=== PATIENT | male | born 2000 | race Caucasian/White ===

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

== ENCOUNTER 2019-01-15 00:44 | Observation (INO) | payer MEDICAID, OTHER ==
[~2019-01-15] VITALS: Ht 162.6 cm; Wt 64.8 kg
[2019-01-15] VITALS (12 sets, daily range): BP systolic 90–127; BP diastolic 46–85
[~2019-01-15 00:44] MED LIST changes: +BUPR300T34; +CIPRODEX AD; +DEBR6.5S4 AD; +LAMO25TA4
[2019-01-15] MEDS ORDERED: HALOPERIDOL 5 MG/ML VIAL (J1630) As Ordered ONE (00:55)
[2019-01-15] MEDS ORDERED: diphenhydrAMINE INJ 50MG/ML VIAL (J1200) As Ordered ONE (00:55)
[2019-01-15] MEDS ORDERED: LORazepam 2 MG/ML VIAL (J2060) As Ordered ONE (00:56)
[2019-01-15] MEDS ORDERED: NS 1,000 ML IV ONE (01:00)
[2019-01-15] MEDS ORDERED: HALOPERIDOL 5 MG/ML VIAL (J1630) IM ONE (01:00)
[2019-01-15] MEDS ORDERED: LORazepam 2 MG/ML VIAL (J2060) IM ONE (01:00)
[2019-01-15] MEDS ORDERED: diphenhydrAMINE INJ 50MG/ML VIAL (J1200) IM ONE (01:00)
[2019-01-15] MEDS ORDERED: diphenhydrAMINE INJ 50MG/ML VIAL (J1200) IM STA (01:11)
[2019-01-15] MEDS ORDERED: HALOPERIDOL 5 MG/ML VIAL (J1630) IM STA (01:11)
[2019-01-15] MEDS ORDERED: LORazepam 2 MG/ML VIAL (J2060) IM STA (01:12)
[2019-01-15 01:57] LABS: BASO % 0.4 % (0.0-1.0); EOS # 0.1 10^3/uL (0.0-0.50); EOS % 0.7 % (0.0-3.0); HEMOGLOBIN 14.5 g/dl (13.5-17.5); LYMPH # 2.3 10^3/uL (1.5-6.5); MEAN CORPUSCULAR HEMOGLOBIN 31.9 pg (27.0-33.0); MEAN CORPUSCULAR HGB CONC 34.5 g/dl (32.0-36.5); MEAN CORPUSCULAR VOLUME 92.3 fl (80.0-96.0); MONO # 0.4 10^3/uL (0.0-0.8); MONO % 5.5 % (0.0-5.0); NEUTROPHILS # 5.1 10^3/uL (1.8-7.7); NEUTROPHILS % 64.2 % (36.0-66.0); PLATELET COUNT, AUTOMATED 194 10^3/uL (150-450); RED BLOOD COUNT 4.55 10^6/uL (4.30-6.10)
[2019-01-15 02:29] LABS: AMPHETAMINES LEVEL URINE NEGATIVE (NEGATIVE); BARBITURATES URINE NEGATIVE (NEGATIVE); BENZODIAZEPINES URINE NEGATIVE (NEGATIVE); CANNABINOIDS URINE POSITIVE (NEGATIVE); COCAINE METABOLITE URINE NEGATIVE (NEGATIVE); METHADONE URINE NEGATIVE (NEGATIVE); OPIATES URINE NEGATIVE (NEGATIVE); PHENCYCLIDINE URINE NEGATIVE (NEGATIVE)
[2019-01-15 02:38] LABS: ACETAMINOPHEN LEVEL < 2.0 UG/ML (10.0-30.0); ALBUMIN 3.8 GM/DL (3.2-5.2); ALT/SGPT 22 U/L (12-78); BILIRUBIN,DIRECT 0.3 MG/DL (0.0-0.2); BILIRUBIN,TOTAL 1.2 MG/DL (0.2-1.0); BLOOD UREA NITROGEN 14 MG/DL (7-18); CALCIUM LEVEL 7.7 MG/DL (8.5-10.1); CARBON DIOXIDE LEVEL 27 MEQ/L (21-32); CHLORIDE LEVEL 110 MEQ/L (98-107); CK-MB VALUE MASS 5.1 NG/ML (<3.6); CPK CREATINE PHOSPHOKINASE 316 U/L (39-308); CREATININE FOR GFR 1.04 MG/DL (0.70-1.30); ETHYL ALCOHOL (ETHANOL) 0.396 % (0.000-0.010); GLUCOSE, FASTING 98 MG/DL (70-100); MB/CK RELATIVE INDEX 1.61 (< OR =4); POTASSIUM SERUM 3.3 MEQ/L (3.5-5.1); SALICYLATE LEVEL < 1.7 MG/DL (5.0-30.0); SODIUM LEVEL 147 MEQ/L (136-145); TOTAL PROTEIN 6.6 GM/DL (6.4-8.2); TROPONIN I 0.02 NG/ML (< 0.10)
--- NOTE | 2019-01-15 03:12 | REPVR ---
EXAM: CT Head Without Contrast EXAM DATE/TIME: 01/15/2019 2:21 AM CLINICAL HISTORY: 18 years old, male; Altered mental status/memory loss TECHNIQUE: Imaging protocol: Computed tomography images of the head without contrast. Radiation optimization: All CT scans at this facility use at least one of these dose optimization techniques: automated exposure control; mA and/or kV adjustment per patient size (includes targeted exams where dose is matched to clinical indication); or iterative reconstruction. COMPARISON: No relevant prior studies available. FINDINGS: Brain: Normal. No hemorrhage. Unremarkable white matter. No mass effect. Ventricles: Normal. No ventriculomegaly. Bones/joints: Unremarkable. No acute fracture. Sinuses: Visualized sinuses are unremarkable. No fluid levels. Mastoid air cells: Visualized mastoid air cells are well aerated. No mastoid effusion. Soft tissues: Unremarkable. IMPRESSION: Negative noncontrast head CT. Electronically signed by: Cordell Hernandez On 01/15/2019 03:12:30 AM
[2019-01-15] MEDS ORDERED: SUCCINYLCHOLINE INJ 200 MG/10 ML VIAL (J0330) IV ONE (03:15)
[2019-01-15] MEDS ORDERED: PROPOFOL 1,000 MG in APPROPRIATE DILUENT 1 EA IV SCH (03:15)
[2019-01-15] MEDS ORDERED: ETOMIDATE INJ 20MG/10ML VIAL IV ONE (03:15)
--- NOTE | 2019-01-15 04:19 | ECGEPIP ---
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
[2019-01-15] MEDS: PROPOFOL 1,000 MG in APPROPRIATE DILUENT 1 EA IV SCH ×3 (07:18→16:59)
[2019-01-15] MEDS ORDERED: NS 1,000 ML IV SCH (07:18)
[2019-01-15] MEDS ORDERED: MORPHINE 4 MG/ML 1ML VIAL/SYRINGE (J2270) IV PRN (07:30)
--- NOTE | 2019-01-15 07:42 | REP ---
Clinical: Altered mental status . Comparison: 07/18/2016 . Findings: The mediastinum and cardiac silhouette are stable and within normal limits for portable technique. The lung roe are clear without acute consolidation, effusion, or pneumothorax. Skeletal structures are intact. Impression: No acute cardiopulmonary process appreciated. Electronically Signed by Erlin Bassett MD 01/15/2019 07:34 A
--- NOTE | 2019-01-15 07:43 | REP ---
Clinical: Status post intubation . Comparison: 07/18/2016 . Findings: Endotracheal tube approximately 4.5 cm above the ankita on final image. The mediastinum and cardiac silhouette are stable and within normal limits for portable technique. The lung roe are clear without acute consolidation, effusion, or pneumothorax. Skeletal structures are intact. Impression: No acute cardiopulmonary process appreciated. Electronically Signed by Erlin Bassett MD 01/15/2019 07:35 A
[2019-01-15] MEDS ORDERED: CHLORHEXIDINE GLUCONATE 0.12 % 15ML UDC (PERIDEX ORAL RINSE) MT SCH (09:00)
[2019-01-15] MEDS ORDERED: PANTOPRAZOLE 40MG INJ (PROTONIX) (C9113) IV SCH (09:00)
[2019-01-15] MEDS ORDERED: ENOXAPARIN 40 MG/0.4 ML SYRINGE (J1650) SC SCH (09:00)
[2019-01-15] MEDS ORDERED: MULTIVITAMIN -ADULT INJECTION 10 ML, THIAMINE INJection 100 MG, FOLIC ACID 1 MG in NS 1... IV ONE (09:00)
[2019-01-15] MEDS ORDERED: PROPOFOL 1,000 MG/100 ML VIAL As Ordered ONE (09:10)
[2019-01-15] MEDS: IPRATROPIUM 0.5MG/ALBUTEROL 2.5MG INH SOL UD 3ML (DUONEB)(J7620) NEB SCH ×3 (09:15→16:03)
[2019-01-15 09:22] LABS: ABG BASE EXCESS -1.9 (-2.0-2.0); ABG HCO3 22.8 MEQ/L (22.0-26.0); ABG O2 SATURATION 96.9 % (95.0-99.0); ABG PARTIAL PRESSURE CO2 38.9 mmHg (35.0-45.0); ABG STANDARD HCO3 22.9 MEQ/L (22.0-26.0); ABG pH (ARTERIAL) 7.386 UNITS (7.350-7.450)
--- NOTE | 2019-01-15 09:36 | HPE ---
DATE OF ADMISSION: 01/15/2019 CHIEF COMPLAINT: Asked by Dr. Magaña to evaluate and manage care for Mr. Terrell Álvarez secondary to requirement of intubation and mechanical ventilation secondary to alcohol intoxication. HISTORY OF PRESENT ILLNESS: Mr. Álvarez is a 18-year-old male who was found down on the sidewalk and brought to the emergency department. In the emergency department, he was found have an alcohol level of 0.4. In reading the emergency department intake, he had stated "I can become violent if pushed". He was very agitated kicking and trying to bite people. He had to be given Benadryl, Haldol and Ativan; two doses of each. He was still agitated and had to be placed in four point restraints. His level of consciousness decreased. He had no gag and it was fell necessary to intubate and protect his airway. The intubation was reported as easy with no concerns regarding aspiration. When I see him now he is intubated and sedated. The only history I could obtain from the nurses is that he had alcohol this evening including daiquiris as well as ate pizza. I was also told that he had been in rehab at least one time before starting at age 13. No relatives have come forward at this point. PAST MEDICAL HISTORY: 1. History of rehabilitation stay at least once starting at age 13. MEDICATIONS: No known medications. ALLERGIES: No known drug allergies. Social history, family history, and review of systems unattainable secondary to intubation. PHYSICAL EXAMINATION: General: Mr. Álvarez is intubated and synchronous with the ventilator. He did start coughing after examination and required some additional sedation. Vital signs: Temperature 97.8, pulse 77, blood pressure 101/55 with a MAP of 70, SpO2 99% on FiO2 of 0.4, respiratory rate 16 (set rate). HEENT: Mildly injected sclerae, pupils 2-3 mm and sluggish. Nares: Patent bilaterally. Moist mucosa. Oropharynx: ET tube and OG tube in place. Neck: Supple, without JVD, thyromegaly or masses, trachea is midline. Lymph: No cervical or supraclavicular lymphadenopathy. Chest: Normal shape. Lungs: Symmetric excursion, good air entry, no wheeze, rhonchi or crackle on tidal excursion. Normal I:E. No accessory muscle usage or retractions. Cardiovascular: Regular rate and rhythm with normal S1, S2, no murmur, rub or gallop appreciated. Abdomen: Diminished but present bowel sounds, soft, nondistended, no hepatosplenomegaly or masses appreciated. Extremities: Warm and well-perfused, normal capillary refill. Palpable pedal pulses bilaterally, no clubbing, cyanosis or edema. Skin: No tattoos. No obvious track macias including between the fingers and toes. LABORATORY DATA: CBC showed a hemoglobin of 14.5, hematocrit 42, platelet count 194,000, white blood cell count 8000 with a differential 64% neutrophils, 29% lymphocytes, 6% monocytes. His absolute eosinophilia is 100. Chemistries: Sodium 144, potassium 3.3, chloride 110, bicarbonate 27, anion gap 10, BUN 14, creatinine 1, glucose 98, calcium 7.7, total bilirubin 1.2, direct bilirubin 0.3, AST 21, ALT 22, alkaline phosphatase 58, CK 316, CK-MB 5.1, troponin-I 0.02, total protein 6.6, albumin 3.8, TSH 1.68. Urinalysis was clear with a pH of 6, specific gravity 1.01. Was otherwise negative. Toxicology shows salicylate level less of 1.7, acetaminophen less than 2, alcohol level 0.4, was positive cannabis but otherwise negative. I reviewed his chest x-rays as well as report. The first chest x-ray done post intubation showed the endotracheal tube to be very high but otherwise was unremarkable. His followup chest x-ray showed normal appearing cardiac silhouette and pulmonary vascular shadows. Normal appearing mediastinal region. No acute infiltrates. Normal inflation. Endotracheal tube was now about 6 cm above the ankita. Initial arterial blood gas was obtained, I believe prior to intubation, or at the time of intubation, was 7.29/106/48 with a measured saturation of 97% and a base excess -3. A repeat after being on the ventilator was 7.28/269/53 with a measured saturation of 100%. I do not know settings at that time, but they were adjusted to the current settings which are a rate of 16, tidal volume of 450, PEEP of 6 and FiO2 0.3. IMPRESSION: 1. Acute respiratory failure secondary to decreased mental status secondary to EtOH intoxication. 2. EtOH intoxication. The level of which he was able to tolerate suggests that this is a chronic problem for him. He also, by verbal report, has had at least one admission for rehabilitation starting at age 13. RECOMMENDATIONS: 1. Will continue with mechanical ventilation for the immediate future. 2. Unfortunately the anticipated time for which his alcohol level will actually reach even the legal driving limit of 0.08 would be in about 16 hours which would be around 6 p.m. 3. We will assess him for extubation around that time. 4. No relatives have been contacted. He is of legal age and while his mother is listed on the intake form as the next of kin, I do not know anything about their relationship and would prefer to wait until he is extubated to receive permission to speak with her. 5. We will give thiamine, multivitamin and folate. 6. We will repeat an arterial blood gas at this time and make adjustments as necessary. CRITICAL CARE TIME: 35 minutes not including procedure time. KELSIED
[2019-01-15] MEDS: MIDAZOLAM INJ 2 MG/2 ML VIAL (J2250) IV PRN ×7 (10:25→16:16)
--- NOTE | 2019-01-16 09:29 | CCN ---
DATE: 01/15/2019 NOTE: Throughout the day several attempts were made to lighten Mr. Álvarez sedation. He became very agitated, actually swung at staff and gave us the middle finger. He was therefore kept sedated. Anticipating his alcohol level would be around 0.08 around 6:00 p.m. a repeat level was drawn which was 0.084. We did a short weaning trial while his propofol wore off. On a weaning trial of pressure support of 5 and PEEP of 5, his rapid shallow breathing index was in the teens. He was taking an tidal volumes greater than 1300. He was following commands, it was felt safe to extubate him and he was successfully extubated. We asked him whether or not he wanted us to contact his family and he stated he did not want us to call his parents. We asked him if he wanted to call a sibling or friend and he said no. Plan is to observe him overnight as he is status post extubation; however, I would not be surprised if he went AMA. If he does, he needs a friend or family to give him a ride or he needs to be sent home by cab. Additional critical care time 15 minutes not including procedure time. CRISELDA
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
== END 2019-01-15 19:51 | disposition left against medical advice (07) ==
LOC: M ED 00:44 → M ED INP 00:45 → M ICU 08:24
PROVIDERS: ADMIT Internal Medicine Pulmonary Disease; ATTEND Internal Medicine Pulmonary Disease
DX: J96.00 Acute respiratory failure, unspecified whether with hypoxia or hypercapnia (principal); F10.120 Alcohol abuse with intoxication, uncomplicated; R41.82 Altered mental status, unspecified; F41.9 Anxiety disorder, unspecified; F32.9 Major depressive disorder, single episode, unspecified; M79.9 Soft tissue disorder, unspecified; Z78.1 Physical restraint status
CPT/HCPCS: 31500; 36415; 36600; 70450; 71045; 80048; 80076; 80307; 81001; 82550; 82553; 82803; 84443; 85025; 93005; 93041; 94002; 94640; 96372; 96374; 99291; C9113; G0480; J0330; J1200; J1650; J2250; J3411

== ENCOUNTER 2019-04-10 14:57 | Inpatient (IN) | payer MEDICAID, OTHER ==
[~2019-04-10] VITALS: Ht 180.3 cm; Wt 69.9 kg
[2019-04-10 15:36] LABS: HEMATOCRIT 43.3 % (42.0-52.0); HEMOGLOBIN 15.5 g/dl (13.5-17.5); MEAN CORPUSCULAR HEMOGLOBIN 33.9 pg (27.0-33.0); MEAN CORPUSCULAR HGB CONC 35.8 g/dl (32.0-36.5); MEAN CORPUSCULAR VOLUME 94.7 fl (80.0-96.0); PLATELET COUNT, AUTOMATED 182 10^3/uL (150-450); RED BLOOD COUNT 4.57 10^6/uL (4.30-6.10); WHITE BLOOD COUNT 5.8 10^3/uL (4.0-10.0)
[2019-04-10 16:10] LABS: ALBUMIN 4.1 GM/DL (3.2-5.2); ALT/SGPT 42 U/L (12-78); BILIRUBIN,DIRECT 0.3 MG/DL (0.0-0.2); BILIRUBIN,TOTAL 1.3 MG/DL (0.2-1.0); BLOOD UREA NITROGEN 10 MG/DL (7-18); CALCIUM LEVEL 8.8 MG/DL (8.5-10.1); CARBON DIOXIDE LEVEL 27 MEQ/L (21-32); CHLORIDE LEVEL 105 MEQ/L (98-107); ETHYL ALCOHOL (ETHANOL) 0.103 % (0.000-0.010); GLOMERULAR FILTRATION RATE > 60.0 (>60); GLUCOSE, FASTING 76 MG/DL (70-100); POTASSIUM SERUM 3.8 MEQ/L (3.5-5.1); SALICYLATE LEVEL < 1.7 MG/DL (5.0-30.0); SODIUM LEVEL 139 MEQ/L (136-145); THYROID STIMULATING HORMONE 0.717 uIU/ML (0.358-3.740); TOTAL PROTEIN 7.4 GM/DL (6.4-8.2)
[2019-04-10 16:11] LABS: ACETAMINOPHEN LEVEL < 2.0 UG/ML (10.0-30.0)
[2019-04-10 16:36] LABS: AMPHETAMINES LEVEL URINE NEGATIVE (NEGATIVE); BARBITURATES URINE NEGATIVE (NEGATIVE); BENZODIAZEPINES URINE NEGATIVE (NEGATIVE); CANNABINOIDS URINE POSITIVE (NEGATIVE); COCAINE METABOLITE URINE NEGATIVE (NEGATIVE); METHADONE URINE NEGATIVE (NEGATIVE); OPIATES URINE NEGATIVE (NEGATIVE); PHENCYCLIDINE URINE NEGATIVE (NEGATIVE)
[2019-04-10] MEDS ORDERED: OLANZapine ORAL DISINTEGRATING TAB 5MG PO PRN (17:45)
[2019-04-10] MEDS ORDERED: MOM 30ML SUSPENSION UDC PO PRN (17:45)
[2019-04-10] MEDS ORDERED: ACETAMINOPHEN TAB 650MG DOSE (2X325MG) PO PRN (17:45)
[2019-04-10] MEDS ORDERED: MAALOX 30 ML SUSP *UDC PO PRN (17:45)
[2019-04-10] MEDS ORDERED: LORazepam 2 MG TAB PO PRN (17:45)
[2019-04-10 18:41] VITALS: BP 151/84
[2019-04-10 18:44] VITALS: BP 151/84
[2019-04-10] MEDS: FOLIC ACID 1 MG TAB PO SCH (19:00)
[2019-04-10] MEDS: NICOTINE 21MG/24HR 1 EA TRANSDERMAL TD SCH (19:00)
[2019-04-10] MEDS: MULTIVITAMINS/MINERALS THERAP 1 TAB PO SCH (19:00)
[2019-04-10] MEDS: THIAMINE 100 MG TAB PO SCH (21:08)
[2019-04-10] MEDS: traZODone 50 MG TAB PO PRN (21:08)
[2019-04-11 05:38] VITALS: BP 112/60
[2019-04-11 07:01] VITALS: BP 112/60
[2019-04-11] MEDS: NICOTINE 21MG/24HR 1 EA TRANSDERMAL TD SCH (08:43)
[2019-04-11] MEDS: MULTIVITAMINS/MINERALS THERAP 1 TAB PO SCH (08:46)
[2019-04-11] MEDS: THIAMINE 100 MG TAB PO SCH ×2 (08:46→20:47)
[2019-04-11] MEDS: FOLIC ACID 1 MG TAB PO SCH (08:46)
[2019-04-11] MEDS ORDERED: INFLUENZA QUADRIVALENT PF VACCINE 0.5ML SYRINGE (90686) IM ONE (09:00)
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
[2019-04-11 10:00] LABS: BASO % 0.4 % (0.0-1.0); EOS # 0.1 10^3/uL (0.0-0.5); EOS % 1.9 % (0.0-3.0); HEMATOCRIT 42.4 % (42.0-52.0); HEMOGLOBIN 14.8 g/dl (13.5-17.5); LYMPH # 1.1 10^3/uL (1.5-5.0); LYMPH % 22.4 % (24.0-44.0); MEAN CORPUSCULAR HEMOGLOBIN 33.8 pg (27.0-33.0); MEAN CORPUSCULAR HGB CONC 34.9 g/dl (32.0-36.5); MEAN CORPUSCULAR VOLUME 96.8 fl (80.0-96.0); MONO # 0.5 10^3/uL (0.0-0.8); MONO % 9.6 % (0.0-5.0); NEUTROPHILS # 3.1 10^3/uL (1.5-8.5); NEUTROPHILS % 65.3 % (36.0-66.0); PLATELET COUNT, AUTOMATED 168 10^3/uL (150-450); RED BLOOD COUNT 4.38 10^6/uL (4.30-6.10); WHITE BLOOD COUNT 4.8 10^3/uL (4.0-10.0)
[2019-04-11 10:38] LABS: AMYLASE 33 U/L (25-115); LIPASE 136 U/L (73-393)
[2019-04-11 11:00] VITALS: BP 112/60
[2019-04-11 11:08] LABS: HEPATITIS B SURFACE ANTIGEN NEGATIVE (NEGATIVE)
[2019-04-11 11:37] LABS: HEPATITIS B CORE ANTIBODY IGM NEGATIVE (NEGATIVE)
[2019-04-11 11:38] LABS: HEPATITIS A ANTIBODY IGM NEGATIVE (NEGATIVE)
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
[2019-04-11 16:00] VITALS: BP 124/74
[2019-04-11] MEDS: hydrOXYzine 50 MG TAB PO PRN (17:39)
[2019-04-11] MEDS ORDERED: LOPERAMIDE 2 MG CAPLET PO PRN (20:15)
[2019-04-11 20:24] LABS: APPEARANCE, URINE CLEAR (CLEAR); BACTERIA, URINE AUTO NEGATIVE (NEGATIVE); BILIRUBIN, URINE AUTO NEGATIVE (NEGATIVE); BLOOD, URINE BLOOD NEGATIVE (NEGATIVE); COLOR, URINE STRAW (YELLOW); GLUCOSE, URINE (UA) AUTO NEGATIVE (NEGATIVE); KETONE, URINE AUTO NEGATIVE (NEGATIVE); LEUKOCYTE ESTERASE, URINE AUTO NEGATIVE (NEGATIVE); NITRITE, URINE AUTO NEGATIVE (NEGATIVE); PROTEIN, URINE AUTO NEGATIVE (NEGATIVE); RBC, URINE AUTO 0 /HPF (0-3); SPECIFIC GRAVITY URINE AUTO 1.004 (1.002-1.035); SQUAMOUS EPITHELIAL CELL UR AU 0 /HPF (0-6); UROBILINOGEN, URINE AUTO 0.2 mg/dL (0.0-2.0); WBC, URINE AUTO 2 /HPF (0-3)
[2019-04-11] MEDS: traZODone 50 MG TAB PO PRN (20:47)
[2019-04-12 06:40] VITALS: BP 118/66
[2019-04-12 07:22] LABS: ALBUMIN 3.7 GM/DL (3.2-5.2); ALT/SGPT 55 U/L (12-78); BILIRUBIN,TOTAL 1.2 MG/DL (0.2-1.0); BLOOD UREA NITROGEN 16 MG/DL (7-18); CALCIUM LEVEL 9.1 MG/DL (8.5-10.1); CARBON DIOXIDE LEVEL 26 MEQ/L (21-32); CHLORIDE LEVEL 110 MEQ/L (98-107); CREATININE FOR GFR 0.96 MG/DL (0.70-1.30); GLOMERULAR FILTRATION RATE > 60.0 (>60); GLUCOSE, FASTING 87 MG/DL (70-100); POTASSIUM SERUM 4.1 MEQ/L (3.5-5.1); SODIUM LEVEL 140 MEQ/L (136-145); TOTAL PROTEIN 7.1 GM/DL (6.4-8.2)
[2019-04-12 08:04] VITALS: BP 133/85
[2019-04-12] MEDS: FOLIC ACID 1 MG TAB PO SCH (08:04)
[2019-04-12] MEDS: MULTIVITAMINS/MINERALS THERAP 1 TAB PO SCH (08:04)
[2019-04-12] MEDS: NICOTINE 21MG/24HR 1 EA TRANSDERMAL TD SCH (08:04)
[2019-04-12] MEDS: THIAMINE 100 MG TAB PO SCH ×2 (08:04→20:26)
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
[2019-04-12] MEDS: hydrOXYzine 50 MG TAB PO PRN (14:12)
[2019-04-12 16:12] VITALS: BP 131/83
[2019-04-12] MEDS: traZODone 50 MG TAB PO PRN (21:48)
[2019-04-13 06:38] VITALS: BP 124/59
[2019-04-13] MEDS: NICOTINE 21MG/24HR 1 EA TRANSDERMAL TD SCH (08:13)
[2019-04-13] MEDS: THIAMINE 100 MG TAB PO SCH ×2 (08:14→20:11)
[2019-04-13] MEDS: FOLIC ACID 1 MG TAB PO SCH (08:14)
[2019-04-13] MEDS: MULTIVITAMINS/MINERALS THERAP 1 TAB PO SCH (08:14)
[2019-04-13] MEDS ORDERED: FLUoxetine 20 MG CAP PO ONE (09:00)
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
[2019-04-13 16:56] VITALS: BP 132/85
[2019-04-13] MEDS: traZODone 50 MG TAB PO PRN (20:11)
[2019-04-13] MEDS: hydrOXYzine 50 MG TAB PO PRN (21:00)
[2019-04-14 06:23] VITALS: BP 127/16
[2019-04-14] MEDS: MULTIVITAMINS/MINERALS THERAP 1 TAB PO SCH (08:08)
[2019-04-14] MEDS ORDERED: HYDR50TA70 PO (08:54)
[2019-04-14] MEDS ORDERED: FLUO20CA19 PO (08:54)
[2019-04-14] MEDS ORDERED: TRAZ-252 PO (08:54)
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
[2019-04-14] MEDS ORDERED: FLUoxetine 20 MG CAP PO SCH (09:00)
[2019-04-14] MEDS: NICOTINE 21MG/24HR 1 EA TRANSDERMAL TD SCH (09:00)
[2019-04-14] MEDS: FOLIC ACID 1 MG TAB PO SCH (09:00)
== END 2019-04-14 10:25 | disposition home or self-care (01) | DRG 756 ==
LOC: M ED 14:57 → M ED INP 17:43 → M PSY 18:25
PROVIDERS: ADMIT Psychiatry & Neurology Psychiatry; ATTEND Psychiatry & Neurology Psychiatry
DX: F41.1 Generalized anxiety disorder (principal); F12.159 Cannabis abuse with psychotic disorder, unspecified; F43.10 Post-traumatic stress disorder, unspecified; F10.10 Alcohol abuse, uncomplicated; Z91.5 Personal history of self-harm; Z62.810 Personal history of physical and sexual abuse in childhood; F17.200 Nicotine dependence, unspecified, uncomplicated; R19.7 Diarrhea, unspecified

== ENCOUNTER 2019-09-10 22:35 | Emergency (ER) | payer MEDICAID, OTHER ==
[~2019-09-10] VITALS: Ht 175.3 cm; Wt 66.4 kg
[~2019-09-10 22:35] MED LIST changes: -BUPR300T34; +BUPR300T92; +FLUO20CA20 PO; +FLUO20CA22 PO; -FLUO20CA8 PO; +HYDR50TA70 PO; +TRAZ-252 PO
[2019-09-10 23:02] LABS: BASO # 0.1 10^3/uL (0.0-0.2); BASO % 0.6 % (0.0-1.0); EOS # 0.1 10^3/uL (0.0-0.5); EOS % 0.6 % (0.0-3.0); HEMATOCRIT 46.1 % (42.0-52.0); HEMOGLOBIN 15.8 g/dl (13.5-17.5); LYMPH # 2.4 10^3/uL (1.5-5.0); LYMPH % 28.4 % (24.0-44.0); MEAN CORPUSCULAR HGB CONC 34.3 g/dl (32.0-36.5); MEAN CORPUSCULAR VOLUME 93.3 fl (80.0-96.0); MONO # 0.5 10^3/uL (0.0-0.8); NEUTROPHILS # 5.4 10^3/uL (1.5-8.5); NEUTROPHILS % 63.9 % (36.0-66.0); PLATELET COUNT, AUTOMATED 285 10^3/uL (150-450); RED BLOOD COUNT 4.94 10^6/uL (4.30-6.10); WHITE BLOOD COUNT 8.4 10^3/uL (4.0-10.0)
[2019-09-10] MEDS ORDERED: HALOPERIDOL 5 MG/ML VIAL (J1630) IM STA (23:08)
[2019-09-10] MEDS ORDERED: diphenhydrAMINE INJ 50MG/ML VIAL (J1200) IM STA (23:08)
[2019-09-10] MEDS ORDERED: HALOPERIDOL 5 MG/ML VIAL (J1630) As Ordered ONE (23:10)
[2019-09-10] MEDS ORDERED: diphenhydrAMINE INJ 50MG/ML VIAL (J1200) As Ordered ONE (23:10)
[2019-09-10 23:32] LABS: BLOOD UREA NITROGEN 13 MG/DL (7-18); CALCIUM LEVEL 8.6 MG/DL (8.5-10.1); CARBON DIOXIDE LEVEL 27 MEQ/L (21-32); CHLORIDE LEVEL 109 MEQ/L (98-107); CREATININE FOR GFR 0.93 MG/DL (0.70-1.30); ETHYL ALCOHOL (ETHANOL) 0.364 % (0.000-0.010); GLOMERULAR FILTRATION RATE > 60.0 (>60); GLUCOSE, FASTING 109 MG/DL (70-100); SODIUM LEVEL 143 MEQ/L (136-145)
--- NOTE | 2019-09-11 00:58 | REPVR ---
PROCEDURE INFORMATION: Exam: CT Head Without Contrast Exam date and time: 09/11/2019 12:33 AM Age: 19 years old Clinical indication: Injury or trauma; Fall; Initial encounter; Concussion / head injury; Consciousness not specified; Additional info: Fall head injury TECHNIQUE: Imaging protocol: Computed tomography of the head without contrast. Radiation optimization: All CT scans at this facility use at least one of these dose optimization techniques: automated exposure control; mA and/or kV adjustment per patient size (includes targeted exams where dose is matched to clinical indication); or iterative reconstruction. COMPARISON: CT Head without contrast 01/15/2019 2:16 AM FINDINGS: Brain: Normal. No hemorrhage. Unremarkable white matter. No mass effect. Ventricles: Normal. No ventriculomegaly. Bones/joints: Unremarkable. No acute fracture. Sinuses: Visualized sinuses are unremarkable. No fluid levels. Mastoid air cells: Visualized mastoid air cells are well aerated. Soft tissues: Unremarkable. IMPRESSION: No acute intracranial abnormality. Electronically signed by: Rosetta Ivan On 09/11/2019 00:58:10 AM
[2019-09-11 06:15] VITALS: BP 119/75
== END 2019-09-11 06:38 | disposition home or self-care (01) ==
LOC: M ED 22:35
DX: F10.129 Alcohol abuse with intoxication, unspecified (principal); F91.9 Conduct disorder, unspecified; Z79.899 Other long term (current) drug therapy
CPT/HCPCS: 36415; 70450; 80048; 85025; 96372; 99285; G0480; J1200; J1630

== ENCOUNTER 2019-11-03 09:19 | Emergency (ER) | payer OTHER ==
[~2019-11-03] VITALS: Ht 175.3 cm; Wt 69.8 kg
[2019-11-03] MEDS ORDERED: NS 1,000 ML IV ONE (10:00)
[2019-11-03 10:17] LABS: BASO % 0.6 % (0.0-1.0); EOS # 0.1 10^3/uL (0.0-0.5); EOS % 1.4 % (0.0-3.0); HEMATOCRIT 43.4 % (42.0-52.0); HEMOGLOBIN 15.6 g/dl (13.5-17.5); LYMPH # 1.2 10^3/uL (1.5-5.0); LYMPH % 24.8 % (24.0-44.0); MEAN CORPUSCULAR HEMOGLOBIN 32.1 pg (27.0-33.0); MEAN CORPUSCULAR HGB CONC 35.9 g/dl (32.0-36.5); MEAN CORPUSCULAR VOLUME 89.3 fl (80.0-96.0); MONO # 0.3 10^3/uL (0.0-0.8); MONO % 6.7 % (0.0-5.0); NEUTROPHILS # 3.3 10^3/uL (1.5-8.5); NEUTROPHILS % 66.3 % (36.0-66.0); PLATELET COUNT, AUTOMATED 190 10^3/uL (150-450); RED BLOOD COUNT 4.86 10^6/uL (4.30-6.10)
--- NOTE | 2019-11-03 10:50 | REP ---
CHEST, TWO VIEWS: There is no evidence of acute infiltrate. No pleural effusion is seen. The heart is normal in size. The mediastinal silhouette is unremarkable. The visualized osseous structures are intact. IMPRESSION: No acute pulmonary disease. Electronically Signed by Theo Romero MD 11/03/2019 02:53 P
[2019-11-03 11:18] LABS: ALBUMIN 4.1 GM/DL (3.2-5.2); ALT/SGPT 23 U/L (12-78); BILIRUBIN,DIRECT 0.4 MG/DL (0.0-0.2); BILIRUBIN,TOTAL 2.2 MG/DL (0.2-1.0); BLOOD UREA NITROGEN 13 MG/DL (7-18); CARBON DIOXIDE LEVEL 27 MEQ/L (21-32); CHLORIDE LEVEL 108 MEQ/L (98-107); CK-MB VALUE MASS 2.2 NG/ML (<3.6); CPK CREATINE PHOSPHOKINASE 199 U/L (39-308); CREATININE FOR GFR 0.93 MG/DL (0.70-1.30); ETHYL ALCOHOL (ETHANOL) < 0.003 % (0.000-0.010); GLOMERULAR FILTRATION RATE > 60.0 (>60); GLUCOSE, FASTING 89 MG/DL (70-100); LIPASE 53 U/L (73-393); MB/CK RELATIVE INDEX 1.11 (< OR =4); SODIUM LEVEL 140 MEQ/L (136-145); TOTAL PROTEIN 7.1 GM/DL (6.4-8.2); TROPONIN I < 0.02 NG/ML (< 0.10)
--- NOTE | 2019-11-03 12:51 | REP ---
RIGHT UPPER QUADRANT ULTRASOUND: Real-time sonographic evaluation of the right upper quadrant performed. Gallbladder demonstrates no evidence of intraluminal sludge or calculi, wall thickening or pericholecystic fluid. There is no intrahepatic or extrahepatic biliary dilatation, common bile duct measuring 3 mm. The liver and pancreas demonstrates homogeneous echotexture with no gross mass. Right kidney demonstrates no hydronephrosis with normal size 13.3 cm in length. Multiple right renal cysts are present. Most are in the range of 1 cm in diameter. The largest is located in the upper lateral aspect and measures 2.3 x 1.9 x 1.3 cm. IMPRESSION: No acute abnormalities. No gallstones or biliary dilatation. No free fluid. Multiple right renal cysts. Electronically Signed by Theo Romero MD 11/03/2019 02:58 P
[2019-11-03] MEDS ORDERED: ISOVUE-370 76% 100ML VIAL As Ordered ONE (12:55)
[2019-11-03 13:17] VITALS: BP 119/66
[2019-11-03 13:36] LABS: AMPHETAMINES LEVEL URINE NEGATIVE (NEGATIVE); BARBITURATES URINE NEGATIVE (NEGATIVE); BENZODIAZEPINES URINE NEGATIVE (NEGATIVE); CANNABINOIDS URINE POSITIVE (NEGATIVE); COCAINE METABOLITE URINE NEGATIVE (NEGATIVE); METHADONE URINE NEGATIVE (NEGATIVE); OPIATES URINE NEGATIVE (NEGATIVE); PHENCYCLIDINE URINE NEGATIVE (NEGATIVE)
--- NOTE | 2019-11-03 14:21 | REP ---
CT ANGIOGRAM CHEST: TECHNIQUE: Axial contrast-enhanced images from the thoracic inlet to the upper abdomen using 100 mL Isovue-370 intravenous contrast material with multiplanar reformations. There is no CT evidence of pulmonary embolism. There is no thoracic aortic aneurysm or dissection. The heart is normal in size. There is no mediastinal, hilar or chest wall lymphadenopathy. There is no pleural or pericardial effusion. There is no acute infiltrate in either lung. In the visualized upper abdomen, note is made of several bilateral renal cysts. IMPRESSION: No CT evidence of pulmonary embolism or other acute finding. There are bilateral renal cysts. Electronically Signed by Theo Romero MD 11/03/2019 02:58 P
--- NOTE | 2019-11-03 21:27 | ECGEPIP ---
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
== END 2019-11-03 13:50 | disposition home or self-care (01) ==
LOC: M ED 09:19
DX: R07.89 Other chest pain (principal); R04.2 Hemoptysis; F12.129 Cannabis abuse with intoxication, unspecified; F17.218 Nicotine dependence, cigarettes, with other nicotine-induced disorders; F41.9 Anxiety disorder, unspecified
CPT/HCPCS: 71046; 71275; 76705; 80048; 80076; 80307; 81001; 82550; 82553; 83690; 85025; 93005; 96360; 99284; G0480; Q9967

== ENCOUNTER 2019-11-26 23:48 | Emergency (ER) | payer OTHER ==
[~2019-11-26] VITALS: Ht 175.3 cm; Wt 63.6 kg
[2019-11-26 23:48] VITALS: BP 136/85
[2019-11-27] MEDS ORDERED: HYDR-4570 PO (00:36)
[2019-11-27] MEDS ORDERED: BUPR150T3 PO (00:36)
== END 2019-11-27 01:39 | disposition left against medical advice (07) ==
LOC: M ED 23:48
DX: Z53.21 Procedure and treatment not carried out due to patient leaving prior to being seen by health care provider (principal)

== ENCOUNTER 2019-11-27 01:31 | Emergency (ER) | payer OTHER ==
[~2019-11-27 01:31] MED LIST changes: +BUPR150T3 PO; +HYDR-4570 PO
[2019-11-27] MEDS ORDERED: MIDAZOLAM 5MG/ML 1ML VIAL (J2250 PER 1MG) As Ordered ONE (04:00)
[2019-11-27] MEDS ORDERED: PROPOFOL 1,000 MG/100 ML VIAL As Ordered ONE (09:23)
== END 2019-11-27 02:48 | disposition left against medical advice (07) ==
LOC: M ED 01:31
DX: Z53.21 Procedure and treatment not carried out due to patient leaving prior to being seen by health care provider (principal)

== ENCOUNTER 2019-11-27 02:22 | Inpatient (IN) | payer OTHER ==
[2019-11-27] VITALS (32 sets, daily range): BP systolic 108–172; BP diastolic 57–115; O2SAT 100
[~2019-11-27] VITALS: Ht 180.3 cm; Wt 65.3 kg
[2019-11-27] MEDS ORDERED: PROPOFOL 1,000 MG/100 ML VIAL As Ordered ONE (02:39)
[2019-11-27] MEDS ORDERED: propofoL 200 MG/20 ML VIAL IV ONE (02:45)
[2019-11-27] MEDS: propofoL 1,000 MG in IV 1 EA IV SCH ×13 (02:45→21:49)
[2019-11-27 03:07] LABS: BASO # 0.1 10^3/uL (0.0-0.2); BASO % 0.3 % (0.0-1.0); EOS % 0.2 % (0.0-3.0); HEMATOCRIT 39.8 % (42.0-52.0); HEMOGLOBIN 14.3 g/dl (13.5-17.5); LYMPH # 2.9 10^3/uL (1.5-5.0); LYMPH % 15.2 % (24.0-44.0); MEAN CORPUSCULAR HEMOGLOBIN 31.8 pg (27.0-33.0); MEAN CORPUSCULAR HGB CONC 35.9 g/dl (32.0-36.5); MEAN CORPUSCULAR VOLUME 88.4 fl (80.0-96.0); MONO # 1.2 10^3/uL (0.0-0.8); MONO % 6.3 % (0.0-5.0); NEUTROPHILS # 14.9 10^3/uL (1.5-8.5); NEUTROPHILS % 77.6 % (36.0-66.0); PLATELET COUNT, AUTOMATED 264 10^3/uL (150-450); WHITE BLOOD COUNT 19.2 10^3/uL (4.0-10.0)
[2019-11-27] MEDS ORDERED: NS 1,000 ML IV ONE ×2 (03:15→04:15)
--- NOTE | 2019-11-27 03:31 | REPVR ---
PROCEDURE INFORMATION: Exam: CT Head Without Contrast Exam date and time: 11/27/2019 3:13 AM Age: 19 years old Clinical indication: Altered mental status/memory loss; Additional info: AMS TECHNIQUE: Imaging protocol: Computed tomography of the head without contrast. Radiation optimization: All CT scans at this facility use at least one of these dose optimization techniques: automated exposure control; mA and/or kV adjustment per patient size (includes targeted exams where dose is matched to clinical indication); or iterative reconstruction. COMPARISON: CT Head without contrast 09/11/2019 12:30 AM FINDINGS: Brain: Normal. No hemorrhage. Unremarkable white matter. No mass effect. Ventricles: Normal. No ventriculomegaly. Bones/joints: Unremarkable. No acute fracture. Sinuses: Mild paranasal sinus disease. Mastoid air cells: Visualized mastoid air cells are well aerated. Soft tissues: No radiodense foreign body. IMPRESSION: No acute intracranial abnormality. Electronically signed by: Rohan Gaston On 11/27/2019 03:31:30 AM
[2019-11-27 03:33] LABS: ALBUMIN 4.4 GM/DL (3.2-5.2); ALT/SGPT 26 U/L (12-78); BILIRUBIN,DIRECT 0.4 MG/DL (0.0-0.2); BLOOD UREA NITROGEN 8 MG/DL (7-18); CALCIUM LEVEL 8.3 MG/DL (8.5-10.1); CARBON DIOXIDE LEVEL 23 MEQ/L (21-32); CHLORIDE LEVEL 108 MEQ/L (98-107); CPK CREATINE PHOSPHOKINASE 883 U/L (39-308); CREATININE FOR GFR 0.94 MG/DL (0.70-1.30); ETHYL ALCOHOL (ETHANOL) 0.252 % (0.000-0.010); GLOMERULAR FILTRATION RATE > 60.0 (>60); GLUCOSE, FASTING 135 MG/DL (70-100); POTASSIUM SERUM 3.8 MEQ/L (3.5-5.1); SODIUM LEVEL 142 MEQ/L (136-145); TOTAL PROTEIN 7.3 GM/DL (6.4-8.2)
[2019-11-27 04:03] LABS: AMPHETAMINES LEVEL URINE NEGATIVE (NEGATIVE); BARBITURATES URINE NEGATIVE (NEGATIVE); BENZODIAZEPINES URINE NEGATIVE (NEGATIVE); CANNABINOIDS URINE POSITIVE (NEGATIVE); COCAINE METABOLITE URINE NEGATIVE (NEGATIVE); METHADONE URINE NEGATIVE (NEGATIVE); OPIATES URINE NEGATIVE (NEGATIVE); PHENCYCLIDINE URINE NEGATIVE (NEGATIVE)
[2019-11-27] MEDS ORDERED: MIDAZOLAM 5MG/ML 1ML VIAL (J2250 PER 1MG) IM ONE (04:15)
[2019-11-27] MEDS ORDERED: VECURONIUM BROMIDE 10MG VIAL As Ordered ONE (04:26)
[2019-11-27] MEDS ORDERED: VECURONIUM BROMIDE 10MG VIAL IV ONE (04:30)
[2019-11-27] MEDS ORDERED: ceFAZolin SOD 1 GM in D5W MINI-BAG PLUS 50 ML IV ONE (04:30)
[2019-11-27] MEDS ORDERED: MIDAZOLAM 5MG/ML 1ML VIAL (J2250 PER 1MG) IV ONE ×2 (04:45→11:30)
[2019-11-27] MEDS ORDERED: NS 1,000 ML IV SCH (05:45)
--- NOTE | 2019-11-27 08:28 | HPE ---
DATE OF ADMISSION: 11/27/2019 I was called by Dr. Gray at approximately 6:30 a.m. to admit this 19-year-old male who presented extremely agitated to the point where for his safety had to be restrained, intubated, sedated, according to the emergency room physician. The patient himself has a history of suicidal ideation, depression and alcohol use. He is on bupropion and hydroxyzine at home. On his presentation he also had a large laceration of the right hand. The emergency room physician states he has already contacted the orthopedic physician for him to evaluate the lesion. The emergency room physician had stated that he placed a temporary closure after cleaning the wound. This is now bandaged. Unfortunately there is no one able to provide any history. The patient is unconscious on mechanical ventilation. Past medical history is only obtainable by chart and is only significant for major depression with history of recurrent suicidal ideation and alcohol abuse. No family history, social history or review of systems available. Medication list from prior hospitalizations estimated at: - bupropion 150 mg by mouth daily - hydroxyzine 25 mg by mouth daily ALLERGIES: There is no known drug allergies. PHYSICAL EXAMINATION: Pulse is 80, respiratory rate is 14, blood pressure is 170/75 with a MAP of 72, oxygen saturations 99% on FiO2 of 0.30, temperature is 97.2. General: Sedated on mechanical ventilation, some superficial lacerations right hand, bandaged, currently not having any spontaneous movements. HEENT: Sclerae are fairly clear, slightly edematous. Pupils are 5 mm and reactive to light. Mucous membranes are moist. Tongue is midline. Endotracheal tube is in place without any evidence of trauma. Neck: Supple. No tracheal deviation or mass. Lymphatics: No cervical, supraclavicular, or axillary adenopathy. Cardiac: Regular, S1, S2, without audible murmur, rub or gallop. No elevated JVP. No systemic edema. Chest wall minimal pectus excavatum. Pulmonary: Clear to auscultation without rales, rhonchi or wheezes. No dullness to percussion. No accessory muscle use. Abdomen: Soft, nontender, nondistended. No hepatosplenomegaly. No mass or hernia. Extremities: Right hand is bandaged. There is an IV in the right forearm. I do not see any other major lacerations. There is no other evidence of fracture or joint effusion. Neurologic: No evidence of myoclonus. Currently not responding to commands. Sedated on mechanical ventilation. Laboratory evaluation shows an elevated white count of 19.2, hemoglobin 14.3, hematocrit of 39.8 with a platelet count of 264, 77.6 neutrophilia, no bandemia. Sodium is 142, potassium 3.8, chloride 108, bicarbonate of 23, BUN of 8, creatinine of 0.94 with an anion gap of 11, total bilirubin is 2.0 with a CK of 883, albumin is normal at 4.4. Chest x-ray is clear with endotracheal tube in good position. No evidence of pneumothorax, effusion or infiltrate. EKG shows a normal sinus rhythm, QTc is at 427, QRS duration is 96. No ST abnormalities. Toxicology screen shows positive for cannabinoids and positive for alcohol at 0.252. IMPRESSION: 1. Altered mental status requiring intubation, mechanical ventilation, toxic/metabolic encephalopathy. Will continue mechanical ventilation until neurologic status improves. Will continue doing neurologic checks in order to assess for readiness for extubation. Head CT does not show any significant abnormalities. Likely secondary to alcohol use along with underlying major depression. Not clear if this is a suicide attempt with the laceration of the hand. 2. Hand laceration. Orthopaedics consulted. Await their consult in full. 3. DVT prophylaxis. Miguel for now as the patient may require surgical repair of the hand. 4. GI prophylaxis on Protonix. Will initiate tube feeds after surgical timing is clarified. 5. Code status. The patient is a FULL CODE at this point in time. Critical care time was 1 hour and 9 minutes. This excludes all procedures. [facility]
[2019-11-27 08:44] LABS: MEAN CORPUSCULAR HEMOGLOBIN 31.5 pg (27.0-33.0); MEAN CORPUSCULAR VOLUME 89.9 fl (80.0-96.0); PLATELET COUNT, AUTOMATED 187 10^3/uL (150-450); RED BLOOD COUNT 3.78 10^6/uL (4.30-6.10); WHITE BLOOD COUNT 8.8 10^3/uL (4.0-10.0)
[2019-11-27 08:48] LABS: HEMOGLOBIN 11.9 g/dl (13.5-17.5)
[2019-11-27 09:16] LABS: ALBUMIN 3.3 GM/DL (3.2-5.2); ALT/SGPT 23 U/L (12-78); BILIRUBIN,TOTAL 1.3 MG/DL (0.2-1.0); BLOOD UREA NITROGEN 7 MG/DL (7-18); CALCIUM LEVEL 7.7 MG/DL (8.5-10.1); CARBON DIOXIDE LEVEL 23 MEQ/L (21-32); CHLORIDE LEVEL 115 MEQ/L (98-107); CREATININE FOR GFR 0.88 MG/DL (0.70-1.30); GLOMERULAR FILTRATION RATE > 60.0 (>60); GLUCOSE, FASTING 88 MG/DL (70-100); SODIUM LEVEL 146 MEQ/L (136-145); TOTAL PROTEIN 5.6 GM/DL (6.4-8.2)
[2019-11-27 09:21] LABS: ABG BASE EXCESS -5.6 (-2.0-2.0); ABG HCO3 18.4 MEQ/L (22.0-26.0); ABG O2 SATURATION 98.7 % (95.0-99.0); ABG PARTIAL PRESSURE CO2 31.6 mmHg (35.0-45.0); ABG PARTIAL PRESSURE O2 149.1 mmHg (75.0-100.0); ABG STANDARD HCO3 19.9 MEQ/L (22.0-26.0); ABG TOTAL CO2 19.4 MEQ/L (22.0-29.0); ABG pH (ARTERIAL) 7.384 UNITS (7.350-7.450)
[2019-11-27] MEDS ORDERED: SUCCINYLCHOLINE 100 MG/5 ML SYRINGE (J0330) ONE (09:44)
[2019-11-27] MEDS ORDERED: VERAPAMIL 5MG/2ML VIAL ONE (09:44)
[2019-11-27] MEDS: IPRATROPIUM 0.5MG/ALBUTEROL 2.5MG INH SOL UD 3ML (DUONEB) NEB SCH ×4 (09:47→19:16)
[2019-11-27] MEDS: KCL 20MEQ IN D5/0.45NS 1000ML 1,000 ML IV SCH ×3 (10:00→18:28)
[2019-11-27] MEDS: PANTOPRAZOLE 40MG VIAL (C9113 PER 1) IV SCH (10:00)
--- NOTE | 2019-11-27 11:10 | REP ---
Single view chest: 11/27/2019. Indication: Endotracheal tube evaluation. Comparison: 11/03/2019. Findings: The endotracheal tube is 3 cm above the ankita. There is no pleural effusion or pneumothorax. The lungs are clear. Cardiac silhouette is normal. Findings: Endotracheal tube properly positioned. Clear lungs. Electronically Signed by Evelio Karimi DO 11/27/2019 11:01 A
[2019-11-27] MEDS: ENOXAPARIN 30MG/0.3ML SYRINGE (J1650 PER 10MG) SC SCH (12:28)
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
[2019-11-27] MEDS: MIDAZOLAM INJ 2MG/2ML VIAL (J2250 PER 1MG) IV PRN ×6 (13:44→17:09)
[2019-11-27 13:53] LABS: CPK CREATINE PHOSPHOKINASE 888 U/L (39-308)
[2019-11-27] MEDS: CHLORHEXIDINE GLUCONATE 0.12 % 15ML UDC (PERIDEX ORAL RINSE) MT SCH ×2 (14:38→21:48)
--- NOTE | 2019-11-27 16:10 | ECGEPIP ---
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
[2019-11-27] MEDS ORDERED: REFRIGERATOR IV KEYS XX PRN (16:15)
[2019-11-27] MEDS: MIDAZOLAM HCL 100 MG in D5W 80 ML IV SCH (17:08)
[2019-11-27] MEDS: MIDAZOLAM 5MG/ML 1ML VIAL (J2250 PER 1MG) IV PRN (17:22)
[2019-11-27] MEDS ORDERED: MIDAZOLAM HCL 100 MG in D5W 80 ML IV SCH (17:30)
[2019-11-28] VITALS (34 sets, daily range): BP systolic 96–140; BP diastolic 53–85
[2019-11-28] MEDS: propofoL 1,000 MG in IV 1 EA IV SCH ×3 (00:24→05:48)
[2019-11-28] MEDS: KCL 20MEQ IN D5/0.45NS 1000ML 1,000 ML IV SCH ×2 (00:25→13:13)
[2019-11-28] MEDS: MIDAZOLAM 5MG/ML 1ML VIAL (J2250 PER 1MG) IV PRN (02:51)
[2019-11-28] MEDS: MIDAZOLAM HCL 100 MG in D5W 80 ML IV SCH (03:00)
[2019-11-28 04:43] LABS: HEMOGLOBIN 11.1 g/dl (13.5-17.5); MEAN CORPUSCULAR HEMOGLOBIN 31.4 pg (27.0-33.0); MEAN CORPUSCULAR HGB CONC 34.7 g/dl (32.0-36.5); MEAN CORPUSCULAR VOLUME 90.7 fl (80.0-96.0); PLATELET COUNT, AUTOMATED 142 10^3/uL (150-450); RED BLOOD COUNT 3.53 10^6/uL (4.30-6.10); WHITE BLOOD COUNT 5.4 10^3/uL (4.0-10.0)
[2019-11-28 05:04] LABS: ALT/SGPT 19 U/L (12-78); BILIRUBIN,TOTAL 1.5 MG/DL (0.2-1.0); BLOOD UREA NITROGEN 8 MG/DL (7-18); CALCIUM LEVEL 7.8 MG/DL (8.5-10.1); CARBON DIOXIDE LEVEL 24 MEQ/L (21-32); CHLORIDE LEVEL 113 MEQ/L (98-107); CHOLESTEROL LEVEL 82 MG/DL (< 200); CPK CREATINE PHOSPHOKINASE 591 U/L (39-308); CREATININE FOR GFR 0.87 MG/DL (0.70-1.30); GLOMERULAR FILTRATION RATE > 60.0 (>60); GLUCOSE, FASTING 101 MG/DL (70-100); LDH LACTATE DEHYDROGENASE 177 U/L (87-241); PHOSPHORUS LEVEL 4.1 MG/DL (2.5-4.9); POTASSIUM SERUM 4.2 MEQ/L (3.5-5.1); SODIUM LEVEL 144 MEQ/L (136-145); TOTAL PROTEIN 5.4 GM/DL (6.4-8.2); TRIGLYCERIDES LEVEL 101 MG/DL (<150)
[2019-11-28 05:51] LABS: ABG BASE EXCESS 1.7 (-2.0-2.0); ABG HCO3 23.9 MEQ/L (22.0-26.0); ABG O2 SATURATION 99.2 % (95.0-99.0); ABG PARTIAL PRESSURE CO2 29.7 mmHg (35.0-45.0); ABG PARTIAL PRESSURE O2 176.8 mmHg (75.0-100.0); ABG STANDARD HCO3 26.1 MEQ/L (22.0-26.0); ABG TOTAL CO2 24.8 MEQ/L (22.0-29.0); ABG pH (ARTERIAL) 7.523 UNITS (7.350-7.450)
--- NOTE | 2019-11-28 08:10 | REP ---
Portable chest x-ray: Single view. History: Respiratory failure. Comparison study: November 27, 2019. Findings: Monitoring electrodes overlie the chest. Endotracheal tube is seen in good position at the level of the medial clavicles. An NG tube enters left upper quadrant. The lungs are well inflated and clear. Pleural angles are sharp. Heart is not enlarged. Impression: Nasogastric and endotracheal tubes in good position. No active disease. Electronically Signed by Cornell Pack MD 11/28/2019 08:02 A
[2019-11-28] MEDS: ENOXAPARIN 30MG/0.3ML SYRINGE (J1650 PER 10MG) SC SCH (08:54)
[2019-11-28] MEDS: PANTOPRAZOLE 40MG VIAL (C9113 PER 1) IV SCH (08:56)
[2019-11-28] MEDS: ceFAZolin SOD 1 GM in D5W MINI-BAG PLUS 50 ML IV SCH ×2 (08:56→17:27)
[2019-11-28] MEDS ORDERED: LORazepam 2 MG/ML VIAL IV STA (09:30)
--- NOTE | 2019-11-28 09:31 | CCN ---
DATE: 11/28/2019 SUBJECTIVE: This morning, the patient is on sedation vacation. He was quite wild, moving his arms, kicking his legs, and was a danger of self extubation, so sedation was reinitiated. On my arrival to the room, sedation was turned off. I have placed him on pressure support 5/5 and on 55 total volumes were approximately 900. He then quickly woke up. We deflated the cuff to determine there was no air leak and extubated him am as he was fairly agitated. After extubation, he calmed down. Oxygen saturations remained 100% during the entire extubation process. He was admitted yesterday for acute alcohol intoxication causing respiratory failure with a right hand laceration. PHYSICAL EXAMINATION: Temperature is 98.0, pulse 70, blood pressure is 120/84 with a mean arterial pressure of 96, a respiratory rate of 20, and oxygen saturation is 100% on 30% FIO2. General: Awake, but sleepy after extubation, clearly could move all extremities and lift his head off the pillow prior to extubation. HEENT: Sclerae clear and anicteric. Pupils approximately 5 mm, reactive to light. Mucous membranes moist without lesion. Tongue is midline. Orogastric tube and endotracheal tube in place. Neck is supple. No tracheal deviation or mass. Lymphs: No cervical, supraclavicular axillary adenopathy. Cardiac: Regular. S1, S2. Without audible murmur, rub or gallop. No elevated jugular venous pulse (JVP). No discernible edema. Mild pectus excavatum. Pulmonary: Clear to auscultation without rales, rhonchi or wheezes. No dullness to percussion. No accessory muscle use. Abdomen: Soft, nontender, nondistended. No hepatosplenomegaly. No mass or hernia. Extremities: No cyanosis, clubbing or edema. Musculoskeletal: Right hand is bandaged and no evidence of hemorrhage or swelling around the area. No ascending erythema. No other evident areas of trauma. LABORATORY EVALUATION: Shows a white blood cell count of 5.4, hemoglobin 11.1, platelet count of 142. Sodium is 144, potassium 4.2, chloride is 113, bicarb of 24, BUN of 8, creatinine of 0.87 with a glucose 101 and calcium 7.8. Total bilirubin is elevated, but coming down. CK is also trending down, but remains on IV fluids. Chest x-ray shows no evidence of infiltrate or mass. IMPRESSION: 1. Acute respiratory failure from alcohol induced encephalopathy. Extubated this morning. Will continue to monitor in the ICU until the patient is fully functional. I believe this is potentially a suicidal ideation. He has a history of suicidal ideation. Recommend being evaluated by psychiatry prior to discharge. 2. Hand laceration. Orthopedics recommend outpatient surgery. Therefore, will continue approximately 48 hours worth of antibiotics and monitor. 3. CK elevation coming down with IV hydration.
[2019-11-28] MEDS ORDERED: diphenhydrAMINE 50MG/ML VIAL (J1200) IV STA (10:15)
[2019-11-28] MEDS ORDERED: HALOPERIDOL 5MG/ML VIAL (J1630 PER 1) IV STA (10:15)
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
[2019-11-28] MEDS ORDERED: ACETAMINOPHEN TAB 650MG DOSE (2X325MG) PO PRN (17:45)
--- NOTE | 2019-11-28 21:31 | DS.PDOC ---
Discharge Summary General Date of Admission Nov 27, 2019 at 07:44 Date of Discharge 11/28/2019 Discharge Summary PROCEDURES PERFORMED DURING STAY: None. ADMITTING DIAGNOSES: 1. Agitation, alcohol abuse. DISCHARGE DIAGNOSES: 1. Agitation, alcohol abuse, had laceration. COMPLICATIONS/CHIEF COMPLAINT: Etoh Abuse,Respiratory Failure. HISTORY OF PRESENT ILLNESS: 19-year-old male with past medical history of anxiety, depression and suicidal ideation, was admitted for extreme agitation requiring sedation and mechanical ventilation. Patient was extubated earlier today and downgraded to the hospitalist service. Psychiatry was consulted for suicidal ideation and assessment for possible inpatient mental health unit admission. Patient was evaluated by psychiatry and he did not meet criteria for involuntary inpatient admission and refused voluntary admission. Patient has been cleared for discharge and outpatient follow-up by psychiatry. Patient is otherwise back to his baseline since extubation, hemodynamically stable at this time. Patient has laceration on his hand, sutured in the emergency department, advised to follow-up with orthopedic surgery in 2-3 days for further assessment and repair. Patient has received 24 hours of IV antibiotics. HOSPITAL COURSE: As above. DISCHARGE MEDICATIONS: Please see below. ALLERGIES: Please see below. PHYSICAL EXAMINATION: VITAL SIGNS: Please see below. GENERAL: No distress HEENT: Normocephalic, atraumatic, moist mucous membranes NECK: Supple CARDIOVASCULAR EXAMINATION: S1, S2, no murmurs RESPIRATORY EXAMINATION: Clear to auscultation, no wheezing ABDOMINAL EXAMINATION: Soft, nontender, nondistended, positive bowel sounds EXTREMITIES: Range of motion intact SKIN: Hand laceration NEUROLOGICAL EXAMINATION: Alert and oriented 3, no focal deficits PSYCHIATRIC EXAMINATION: Calm and cooperative LABORATORY DATA: Please see below. PROGNOSIS: Fair ACTIVITY: As tolerated. DIET: Regular DISCHARGE PLAN: Follow-up with PCP orthopedic surgery and psychiatry DISPOSITION: Home. DISCHARGE INSTRUCTIONS: 1. As above. DISCHARGE CONDITION: Stable. TIME SPENT ON DISCHARGE: Greater than 25 minutes. Vital Signs/I&Os Vital Signs Date Time Temp Pulse Resp B/P (MAP) Pulse Ox O2 Delivery O2 Flow Rate FiO2 11/28/19 19:41 99.0 92 20 140/74 (96) 100 Room Air 11/28/19 09:00 5.0 28 I&O- Last 24 Hours up to 6 AM 11/28/19 06:00 Intake Total 1874.0 ml Output Total 3290 ml Balance -1416.0 ml Laboratory Data Labs 24H Laboratory Tests 2 6/15/20 04:27: Nucleated Red Blood Cells % (auto) 0.0, Anion Gap 7L, Glomerular Filtration Rate > 60.0, Calcium Level 7.8L, Phosphorus Level 4.1, Total Bilirubin 1.5H, Aspartate Amino Transf (AST/SGOT) 26, Alanine Aminotransferase (ALT/SGPT) 19, Alkaline Phosphatase 51, Lactate Dehydrogenase 177, Total Creatine Kinase 591H, Total Protein 5.4L, Albumin 3.0L, Albumin/Globulin Ratio 1.3, Triglycerides Level 101, Cholesterol Level 82 11/28/19 05:40: Blood Gas Bicarbonate Standard 26.1H, Arterial Blood pH 7.523H, Arterial Blood Partial Pressure CO2 29.7L, Arterial Blood Partial Pressure O2 176.8H, Arterial Blood Total CO2 24.8, Arterial Blood HCO3 23.9, Arterial Blood Base Excess 1.7, Arterial Blood Oxygen Saturation 99.2H CBC/BMP Laboratory Tests 11/28/19 04:27 Discharge Medications Scheduled Bupropion Hcl (Bupropion Xl) 150 Mg Tab.er.24h, 150 MG PO DAILY, (Reported) Hydroxyzine HCl (Hydroxyzine HCl) 25 Mg Tablet, 25 MG PO DAILY, (Reported) Allergies Coded Allergies: No Known Allergies (Unverified , 09/10/19) KOKO PEREZ MD Nov 28, 2019 21:31
== END 2019-11-28 21:57 | disposition home or self-care (01) | DRG 52 ==
LOC: M ED 02:22 → M ED INP 07:44 → ENRESERV 08:14 → M ICU 10:39
PROVIDERS: ADMIT Internal Medicine Pulmonary Disease; ATTEND Internal Medicine
PROC: 0BH17EZ Insertion of Endotracheal Airway into Trachea, Via Natural or Artificial Opening (ICD-10-PCS; principal; 2019-11-26)
PROC: 5A1945Z Respiratory Ventilation, 24-96 Consecutive Hours (ICD-10-PCS; 2019-11-27)
DX: G92 Toxic encephalopathy (principal); S61.411A Laceration without foreign body of right hand, initial encounter; F32.9 Major depressive disorder, single episode, unspecified; S66.320A Laceration of extensor muscle, fascia and tendon of right index finger at wrist and hand level, initial encounter; J96.00 Acute respiratory failure, unspecified whether with hypoxia or hypercapnia; F10.121 Alcohol abuse with intoxication delirium; F12.10 Cannabis abuse, uncomplicated; F43.10 Post-traumatic stress disorder, unspecified; Z79.899 Other long term (current) drug therapy; W25.XXXA Contact with sharp glass, initial encounter; Y92.009 Unspecified place in unspecified non-institutional (private) residence as the place of occurrence of the external cause; Y99.8 Other external cause status

== ENCOUNTER 2020-07-23 19:26 | Emergency (ER) | payer OTHER ==
[~2020-07-23] VITALS: Ht 180.3 cm; Wt 65.3 kg
[~2020-07-23 19:26] MED LIST changes: -BUPR150T3 PO; +BUPR150T4 PO; +CIPR7.5D5 AD; -CIPRODEX AD
[2020-07-23 20:10] LABS: HEMATOCRIT 47.9 % (42.0-52.0); HEMOGLOBIN 16.5 g/dl (13.5-17.5); MEAN CORPUSCULAR HEMOGLOBIN 31.8 pg (27.0-33.0); MEAN CORPUSCULAR HGB CONC 34.4 g/dl (32.0-36.5); MEAN CORPUSCULAR VOLUME 92.3 fl (80.0-96.0); PLATELET COUNT, AUTOMATED 283 10^3/uL (150-450); RED BLOOD COUNT 5.19 10^6/uL (4.30-6.10); WHITE BLOOD COUNT 10.7 10^3/uL (4.0-10.0)
[2020-07-23] MEDS ORDERED: HYDR1CAP25 PO (20:23)
[2020-07-23] MEDS ORDERED: LORazepam 2 MG TAB PO STA (20:23)
[2020-07-23 20:30] LABS: AMPHETAMINES LEVEL URINE NEGATIVE (NEGATIVE); BARBITURATES URINE NEGATIVE (NEGATIVE); BENZODIAZEPINES URINE NEGATIVE (NEGATIVE); CANNABINOIDS URINE POSITIVE (NEGATIVE); COCAINE METABOLITE URINE NEGATIVE (NEGATIVE); METHADONE URINE NEGATIVE (NEGATIVE); OPIATES URINE NEGATIVE (NEGATIVE); PHENCYCLIDINE URINE NEGATIVE (NEGATIVE)
[2020-07-23 20:43] LABS: ACETAMINOPHEN LEVEL < 2.0 UG/ML (10.0-30.0); ALBUMIN 4.5 GM/DL (3.2-5.2); ALT/SGPT 22 U/L (12-78); BILIRUBIN,DIRECT 0.3 MG/DL (0.0-0.2); BILIRUBIN,TOTAL 1.1 MG/DL (0.2-1.0); BLOOD UREA NITROGEN 8 MG/DL (7-18); CALCIUM LEVEL 9.4 MG/DL (8.5-10.1); CARBON DIOXIDE LEVEL 26 MEQ/L (21-32); CHLORIDE LEVEL 106 MEQ/L (98-107); CREATININE FOR GFR 1.21 MG/DL (0.70-1.30); ETHYL ALCOHOL (ETHANOL) 0.311 % (0.000-0.010); GLOMERULAR FILTRATION RATE > 60.0 (>60); GLUCOSE, FASTING 106 MG/DL (70-100); POTASSIUM SERUM 3.5 MEQ/L (3.5-5.1); SODIUM LEVEL 141 MEQ/L (136-145); TOTAL PROTEIN 7.6 GM/DL (6.4-8.2)
[2020-07-23] MEDS ORDERED: diphenhydrAMINE 50MG/ML VIAL (J1200) IM ONE (21:00)
[2020-07-23] MEDS ORDERED: HALOPERIDOL 5MG/ML VIAL (J1630 PER 1) IM ONE (21:00)
[2020-07-23] MEDS ORDERED: LORazepam 2 MG/ML VIAL IM ONE (21:00)
[2020-07-23 22:57] LABS: RSV AMPLIFICATION NEGATIVE (NEGATIVE)
[2020-07-24 09:56] VITALS: BP 123/68
== END 2020-07-24 10:00 | disposition home or self-care (01) ==
LOC: M ED 19:26
DX: F10.129 Alcohol abuse with intoxication, unspecified (principal); Y90.1 Blood alcohol level of 20-39 mg/100 ml
CPT/HCPCS: 36415; 80048; 80076; 80143; 80307; 82077; 84443; 85027; 87631; 96372; 99285; J1200; J1630; J2060

== ENCOUNTER 2021-12-23 09:31 | Emergency (ER) | payer OTHER ==
[~2021-12-23] VITALS: Ht 180.3 cm; Wt 68.3 kg
[2021-12-23 09:31] VITALS: BP 123/82
[~2021-12-23 09:31] MED LIST changes: +BUPR150T12 PO; -BUPR150T4 PO; +FLUO-96 PO; -FLUO20CA20 PO; +HYDR1CAP25 PO
== END 2021-12-23 11:10 | disposition left against medical advice (07) ==
LOC: M ED 09:31
DX: Z53.9 Procedure and treatment not carried out, unspecified reason (principal)

== ENCOUNTER 2022-12-06 15:43 | Emergency (ER) | payer OTHER ==
[2022-12-06] MEDS ORDERED: NS 1,000 ML IV ONE (16:50)
[2022-12-06 16:56] LABS: BASO # 0.1 10^3/uL (0.0-0.2); EOS % 0.3 % (0.0-3.0); HEMATOCRIT 46.6 % (42.0-52.0); HEMOGLOBIN 15.8 g/dl (13.5-17.5); LYMPH # 2.6 10^3/uL (1.5-5.0); LYMPH % 43.8 % (24.0-44.0); MEAN CORPUSCULAR HEMOGLOBIN 31.5 pg (27.0-33.0); MEAN CORPUSCULAR HGB CONC 33.9 g/dl (32.0-36.5); MONO # 0.5 10^3/uL (0.0-0.8); MONO % 8.1 % (2.0-8.0); NEUTROPHILS # 2.7 10^3/uL (1.5-8.5); NEUTROPHILS % 46.5 % (36.0-66.0); PLATELET COUNT, AUTOMATED 260 10^3/uL (150-450); RED BLOOD COUNT 5.01 10^6/uL (4.30-6.10); WHITE BLOOD COUNT 5.9 10^3/uL (4.0-10.0)
[2022-12-06 17:25] LABS: ACETAMINOPHEN LEVEL < 2.0 UG/ML (10.0-20.0)
[2022-12-06 17:26] LABS: ALBUMIN 4.3 G/DL (3.2-5.2); ALKALINE PHOSPHATASE 100 U/L (46-116); ALT/SGPT 138 U/L (7.0-40); AST/SGOT 93 U/L (<34); BILIRUBIN,DIRECT 0.4 MG/DL (<0.4); BILIRUBIN,TOTAL 1.1 MG/DL (0.3-1.2); BLOOD UREA NITROGEN 8 MG/DL (9-23); CARBON DIOXIDE LEVEL 25 MMOL/L (20-31); CHLORIDE LEVEL 113 MMOL/L (98-107); CREATININE FOR GFR 0.75 MG/DL (0.70-1.30); GLOMERULAR FILTRATION RATE > 60.0 (>60); GLUCOSE, FASTING 104 MG/DL (60-100); SALICYLATE LEVEL < 3.0 MG/DL (<30); SODIUM LEVEL 148 MMOL/L (136-145); TOTAL PROTEIN 7.1 G/DL (5.7-8.2)
[2022-12-06 17:28] LABS: RSV AMPLIFICATION NEGATIVE (NEGATIVE)
[2022-12-06 17:28] LABS: THYROID STIMULATING HORMONE 0.373 uIU/ML (0.55-4.78)
[2022-12-06 17:31] LABS: CPK CREATINE PHOSPHOKINASE 412 U/L (46-171)
[2022-12-06 17:39] LABS: OSMOLALITY SERUM 433 MOSM/KG (275-295)
[2022-12-06] MEDS ORDERED: OLANZapine ORAL DISINTEGRATING TAB 5MG PO ONE (17:55)
[2022-12-06 18:15] LABS: AMPHETAMINES LEVEL URINE NEGATIVE (NEGATIVE); BARBITURATES URINE NEGATIVE (NEGATIVE); BENZODIAZEPINES URINE NEGATIVE (NEGATIVE); COCAINE METABOLITE URINE NEGATIVE (NEGATIVE); METHADONE URINE NEGATIVE (NEGATIVE); OPIATES URINE NEGATIVE (NEGATIVE); PHENCYCLIDINE URINE NEGATIVE (NEGATIVE)
[2022-12-06 18:20] LABS: CANNABINOIDS URINE POSITIVE (NEGATIVE)
[2022-12-06] MEDS ORDERED: LORazepam 2 MG/ML 1ML VIAL IV STA ×3 (18:48→23:21)
[2022-12-06] MEDS ORDERED: LORazepam 2 MG/ML 1ML VIAL As Ordered ONE (18:49)
[2022-12-07] MEDS ORDERED: LORazepam 2 MG/ML 1ML VIAL IV STA ×3 (00:23→01:28)
[2022-12-07] MEDS ORDERED: dexmedeTOMidine 200 MCG in IV 1 EA IV SCH (01:50)
[2022-12-07] MEDS ORDERED: dexmedeTOMidine 60 MCG in IV 1 EA IV ONE (01:50)
[2022-12-07 08:38] VITALS: BP 116/61; TEMP 97.7; O2SAT 100
== END 2022-12-07 08:59 | disposition home or self-care (01) ==
LOC: EDBD 15:43 → M ED 15:43
DX: F10.120 Alcohol abuse with intoxication, uncomplicated (principal); F17.200 Nicotine dependence, unspecified, uncomplicated; Z91.010 Allergy to peanuts
CPT/HCPCS: 80048; 80076; 80143; 80307; 82077; 82550; 83605; 83930; 84443; 85025; 87631; 93041; 94760; 96365; 96366; 96375; 96376; 99285; J2060

== ENCOUNTER 2023-04-19 15:31 | Inpatient (IN) | payer MEDICAID, OTHER ==
[~2023-04-19] VITALS: Ht 180.3 cm; Wt 70.6 kg
[2023-04-19 16:58] LABS: HEMATOCRIT 42.3 % (42.0-52.0); HEMOGLOBIN 14.5 g/dl (13.5-17.5); MEAN CORPUSCULAR HEMOGLOBIN 33.5 pg (27.0-33.0); MEAN CORPUSCULAR HGB CONC 34.3 g/dl (32.0-36.5); MEAN CORPUSCULAR VOLUME 97.7 fl (80.0-96.0); PLATELET COUNT, AUTOMATED 152 10^3/uL (150-450); RED BLOOD COUNT 4.33 10^6/uL (4.30-6.10); WHITE BLOOD COUNT 7.8 10^3/uL (4.0-10.0)
[2023-04-19 17:16] LABS: AMPHETAMINES LEVEL URINE NEGATIVE (NEGATIVE); BARBITURATES URINE NEGATIVE (NEGATIVE)
[2023-04-19 17:17] LABS: BENZODIAZEPINES URINE NEGATIVE (NEGATIVE); COCAINE METABOLITE URINE NEGATIVE (NEGATIVE); METHADONE URINE NEGATIVE (NEGATIVE); OPIATES URINE NEGATIVE (NEGATIVE); PHENCYCLIDINE URINE NEGATIVE (NEGATIVE)
[2023-04-19 17:18] LABS: ETHYL ALCOHOL (ETHANOL) < 0.003 % (0.000-0.010)
[2023-04-19 17:19] LABS: CANNABINOIDS URINE POSITIVE (NEGATIVE)
[2023-04-19 17:20] LABS: ALBUMIN 4.1 G/DL (3.2-5.2); ALKALINE PHOSPHATASE 67 U/L (46-116); ALT/SGPT 42 U/L (7.0-40); AST/SGOT 31 U/L (<34); BILIRUBIN,DIRECT 0.3 MG/DL (<0.4); BILIRUBIN,TOTAL 0.9 MG/DL (0.3-1.2); BLOOD UREA NITROGEN 12 MG/DL (9-23); CALCIUM LEVEL 9.5 MG/DL (8.5-10.1); CARBON DIOXIDE LEVEL 28 MMOL/L (20-31); CHLORIDE LEVEL 103 MMOL/L (98-107); CREATININE FOR GFR 0.95 MG/DL (0.70-1.30); GLOMERULAR FILTRATION RATE > 60.0 (>60); GLUCOSE, FASTING 98 MG/DL (60-100); POTASSIUM SERUM 3.9 MMOL/L (3.5-5.1); SALICYLATE LEVEL < 3.0 MG/DL (<30); SODIUM LEVEL 138 MMOL/L (136-145); TOTAL PROTEIN 6.7 G/DL (5.7-8.2)
[2023-04-19 17:24] LABS: THYROID STIMULATING HORMONE 0.441 uIU/ML (0.55-4.78)
[2023-04-19] MEDS ORDERED: MOM 30ML SUSPENSION UDC PO PRN (18:55)
[2023-04-19] MEDS ORDERED: MAALOX 30 ML SUSP *UDC PO PRN (18:55)
[2023-04-19] MEDS ORDERED: ACETAMINOPHEN TAB 650MG DOSE (2X325MG) PO PRN (18:55)
[2023-04-19] MEDS ORDERED: IBUPROFEN 400MG TAB PO PRN (18:55)
[2023-04-19] MEDS ORDERED: HOME MED LIST COMPLETE! XX SCH (19:55)
[2023-04-19] MEDS: traZODone 50 MG TAB PO PRN (21:28)
[2023-04-19 22:11] VITALS: BP 117/76; TEMP 98; O2SAT 99
[2023-04-20 06:37] VITALS: BP 121/68; TEMP 98.2; O2SAT 99
[2023-04-20] MEDS: NICOTINE 21MG/24HR 1 EA TRANSDERMAL TD SCH (09:00)
[2023-04-20] MEDS: ESCITALOPRAM OXALATE 10 MG TAB (LEXAPRO) PO SCH (10:06)
[2023-04-20] MEDS: diphenhydrAMINE 25MG CAP PO PRN (12:57)
[2023-04-20 14:27] LABS: FREE T4 1.19 NG/DL (0.89-1.76)
[2023-04-20 16:01] VITALS: BP 134/73; TEMP 98.1; O2SAT 100
[2023-04-20] MEDS: traZODone 50 MG TAB PO PRN (20:08)
[2023-04-20] MEDS: hydrOXYzine 50 MG TAB PO PRN (20:08)
[2023-04-21 06:17] VITALS: BP 118/69; TEMP 98.3; O2SAT 100
[2023-04-21] MEDS: diphenhydrAMINE 25MG CAP PO PRN (08:39)
[2023-04-21] MEDS: ESCITALOPRAM OXALATE 10 MG TAB (LEXAPRO) PO SCH (08:39)
[2023-04-21] MEDS: NICOTINE 21MG/24HR 1 EA TRANSDERMAL TD SCH (08:45)
[2023-04-21 16:11] VITALS: BP 138/86; TEMP 98.4; O2SAT 99
[2023-04-21] MEDS: traZODone 50 MG TAB PO PRN (20:14)
[2023-04-21] MEDS: RAMELTEON 8 MG TAB (ROZEREM) PO PRN (20:14)
[2023-04-21] MEDS: hydrOXYzine 50 MG TAB PO PRN (20:14)
[2023-04-22] MEDS: diphenhydrAMINE 25MG CAP PO PRN ×2 (00:29→12:08)
[2023-04-22 06:26] VITALS: BP 119/69; TEMP 98.2; O2SAT 100
[2023-04-22] MEDS: NICOTINE 21MG/24HR 1 EA TRANSDERMAL TD SCH (08:25)
[2023-04-22] MEDS: ESCITALOPRAM OXALATE 10 MG TAB (LEXAPRO) PO SCH (08:25)
[2023-04-22 17:13] VITALS: BP 136/72; TEMP 96.7; O2SAT 95
[2023-04-22] MEDS: RAMELTEON 8 MG TAB (ROZEREM) PO PRN (20:29)
[2023-04-22] MEDS: hydrOXYzine 50 MG TAB PO PRN (20:29)
[2023-04-22] MEDS: traZODone 50 MG TAB PO PRN (20:29)
[2023-04-23 06:03] VITALS: BP_SYST 126; BP_SYST 139; BP_DIAS 60; BP_DIAS 74; TEMP 97.5; TEMP 97.8; O2SAT 97; O2SAT 98
[2023-04-23] MEDS: ESCITALOPRAM OXALATE 10 MG TAB (LEXAPRO) PO SCH (08:23)
[2023-04-23] MEDS: NICOTINE 21MG/24HR 1 EA TRANSDERMAL TD SCH (08:25)
[2023-04-23] MEDS ORDERED: RAME8TAB2 PO (10:14)
[2023-04-23] MEDS ORDERED: TRAZ-252 PO (10:14)
[2023-04-23] MEDS ORDERED: NICO21PAT TD (10:14)
[2023-04-23] MEDS ORDERED: HYDR50TA70 PO (10:14)
[2023-04-23] MEDS ORDERED: LEXA1TAB PO (10:14)
== END 2023-04-23 10:41 | disposition home or self-care (01) | DRG 754 ==
LOC: M ED 15:31 → M ED INP 18:55 → M PSY 20:42
PROVIDERS: ADMIT Student in an Organized Health Care Education/Training Program; ATTEND Student in an Organized Health Care Education/Training Program
DX: F32.A Depression, unspecified (principal); R45.851 Suicidal ideations; F60.89 Other specific personality disorders; F43.10 Post-traumatic stress disorder, unspecified; F10.20 Alcohol dependence, uncomplicated; F12.20 Cannabis dependence, uncomplicated; Z91.51 Personal history of suicidal behavior; F17.210 Nicotine dependence, cigarettes, uncomplicated; Z56.0 Unemployment, unspecified; Z91.030 Bee allergy status; Z65.2 Problems related to release from prison; Z81.8 Family history of other mental and behavioral disorders; Z81.3 Family history of other psychoactive substance abuse and dependence

== ENCOUNTER 2023-06-20 15:13 | Emergency (ER) | payer MEDICAID, OTHER ==
[~2023-06-20 15:13] MED LIST changes: +LEXA1TAB PO; +NICO21PAT TD; +RAME8TAB2 PO
== END 2023-06-20 15:38 | disposition left against medical advice (07) ==
LOC: M ED 15:13
DX: Z53.21 Procedure and treatment not carried out due to patient leaving prior to being seen by health care provider (principal)

== ENCOUNTER 2023-09-06 20:49 | Observation (INO) | payer MEDICAID, OTHER ==
[~2023-09-06] VITALS: Ht 177.8 cm; Wt 86.3 kg
[~2023-09-06 20:49] MED LIST changes: +LEXA1TAB2 PO; +ROZE8TAB16 PO
[2023-09-06] MEDS: THIAMINE 100 MG TAB PO SCH (21:00)
[2023-09-06 21:23] LABS: BASO % 0.7 % (0.0-1.0); EOS # 0.1 10^3/uL (0.0-0.5); EOS % 1.3 % (0.0-3.0); HEMATOCRIT 42.2 % (42.0-52.0); HEMOGLOBIN 14.8 g/dl (13.5-17.5); LYMPH # 2.3 10^3/uL (1.5-5.0); LYMPH % 38.1 % (24.0-44.0); MEAN CORPUSCULAR HEMOGLOBIN 32.7 pg (27.0-33.0); MEAN CORPUSCULAR HGB CONC 35.1 g/dl (32.0-36.5); MEAN CORPUSCULAR VOLUME 93.2 fl (80.0-96.0); MONO # 0.3 10^3/uL (0.0-0.8); MONO % 5.3 % (2.0-8.0); NEUTROPHILS # 3.3 10^3/uL (1.5-8.5); NEUTROPHILS % 54.4 % (36.0-66.0); PLATELET COUNT, AUTOMATED 162 10^3/uL (150-450); RED BLOOD COUNT 4.53 10^6/uL (4.30-6.10)
[2023-09-06] MEDS: diphenhydrAMINE 50MG/ML VIAL IM ONE (21:37)
[2023-09-06] MEDS: NS 1,000 ML IV ONE (21:38)
[2023-09-06] MEDS: LORazepam 2 MG/ML 1ML VIAL IM ONE (21:38)
[2023-09-06] MEDS: HALOPERIDOL 5MG/ML 1ML VIAL IM ONE (21:38)
[2023-09-06 21:48] LABS: SALICYLATE LEVEL < 3.0 MG/DL (<30)
[2023-09-06 21:49] LABS: ALKALINE PHOSPHATASE 80 U/L (46-116); ALT/SGPT 39 U/L (7.0-40); AST/SGOT 55 U/L (<34); BILIRUBIN,DIRECT 0.3 MG/DL (<0.4); BILIRUBIN,TOTAL 0.8 MG/DL (0.3-1.2); BLOOD UREA NITROGEN 11 MG/DL (9-23); CARBON DIOXIDE LEVEL 26 MMOL/L (20-31); CHLORIDE LEVEL 111 MMOL/L (98-107); CPK CREATINE PHOSPHOKINASE 713 U/L (46-171); GLOMERULAR FILTRATION RATE > 60.0 (>60); GLUCOSE, FASTING 90 MG/DL (60-100); POTASSIUM SERUM 3.4 MMOL/L (3.5-5.1); SODIUM LEVEL 146 MMOL/L (136-145); TOTAL PROTEIN 7.1 G/DL (5.7-8.2)
[2023-09-06 21:51] LABS: THYROID STIMULATING HORMONE 0.501 uIU/ML (0.55-4.78)
[2023-09-06 21:57] LABS: AMPHETAMINES LEVEL URINE NEGATIVE (NEGATIVE); BARBITURATES URINE NEGATIVE (NEGATIVE); BENZODIAZEPINES URINE NEGATIVE (NEGATIVE); COCAINE METABOLITE URINE NEGATIVE (NEGATIVE); METHADONE URINE NEGATIVE (NEGATIVE); OPIATES URINE NEGATIVE (NEGATIVE); PHENCYCLIDINE URINE NEGATIVE (NEGATIVE)
[2023-09-06 22:00] LABS: CANNABINOIDS URINE POSITIVE (NEGATIVE); ETHYL ALCOHOL (ETHANOL) 0.482 % (0.000-0.010)
[2023-09-06] MEDS ORDERED: HOME MED LIST COMPLETE! XX SCH (22:35)
[2023-09-06] MEDS ORDERED: ROZE8TAB16 PO (22:35)
[2023-09-06] MEDS ORDERED: MAG SULF 1GM/100ML (MAG RUN) 2 GM in IV 1 EA IV ONE (22:35)
[2023-09-07] VITALS (7 sets, daily range): BP systolic 127–152; BP diastolic 68–89; TEMP 97.2–99.1; O2SAT 95–100
[2023-09-07] MEDS: MAG SULF 1GM/100ML (MAG RUN) 1 GM in IV 1 EA IV SCH (00:01)
[2023-09-07] MEDS ORDERED: ACETAMINOPHEN TAB 650MG DOSE (2X325MG) PO PRN (01:10)
[2023-09-07] MEDS: NS 0.45% 1,000 ML IV SCH (01:25)
[2023-09-07 07:50] LABS: BLOOD UREA NITROGEN 9 MG/DL (9-23); CARBON DIOXIDE LEVEL 26 MMOL/L (20-31); CHLORIDE LEVEL 114 MMOL/L (98-107); CREATININE FOR GFR 0.71 MG/DL (0.70-1.30); GLOMERULAR FILTRATION RATE > 60.0 (>60); GLUCOSE, FASTING 77 MG/DL (60-100); POTASSIUM SERUM 3.7 MMOL/L (3.5-5.1); SODIUM LEVEL 147 MMOL/L (136-145)
[2023-09-07 08:24] LABS: BASO % 0.4 % (0.0-1.0); EOS # 0.1 10^3/uL (0.0-0.5); HEMOGLOBIN 14.5 g/dl (13.5-17.5); LYMPH # 1.8 10^3/uL (1.5-5.0); LYMPH % 37.3 % (24.0-44.0); MEAN CORPUSCULAR HEMOGLOBIN 33.4 pg (27.0-33.0); MEAN CORPUSCULAR HGB CONC 35.4 g/dl (32.0-36.5); MEAN CORPUSCULAR VOLUME 94.5 fl (80.0-96.0); MONO # 0.3 10^3/uL (0.0-0.8); MONO % 6.5 % (2.0-8.0); NEUTROPHILS # 2.6 10^3/uL (1.5-8.5); NEUTROPHILS % 54.6 % (36.0-66.0); PLATELET COUNT, AUTOMATED 143 10^3/uL (150-450); RED BLOOD COUNT 4.34 10^6/uL (4.30-6.10); WHITE BLOOD COUNT 4.8 10^3/uL (4.0-10.0)
[2023-09-07 08:51] LABS: CPK CREATINE PHOSPHOKINASE 591 U/L (46-171)
[2023-09-07] MEDS: OXAZEPAM 15MG CAP PO SCH (10:14)
[2023-09-07] MEDS: FOLIC ACID 1MG TAB PO SCH (10:14)
[2023-09-07] MEDS: MULTIVITAMINS/MINERALS THERAP 1 TAB PO SCH (10:15)
[2023-09-07] MEDS: ENOXAPARIN 40MG/0.4ML SYRINGE (J1650 PER 10MG) SC SCH (12:27)
[2023-09-07 12:28] LABS: BLOOD UREA NITROGEN 9 MG/DL (9-23); CALCIUM LEVEL 7.5 MG/DL (8.5-10.1); CARBON DIOXIDE LEVEL 22 MMOL/L (20-31); CHLORIDE LEVEL 110 MMOL/L (98-107); CREATININE FOR GFR 0.66 MG/DL (0.70-1.30); GLOMERULAR FILTRATION RATE > 60.0 (>60); GLUCOSE, FASTING 70 MG/DL (60-100); POTASSIUM SERUM 3.9 MMOL/L (3.5-5.1); SODIUM LEVEL 141 MMOL/L (136-145)
[2023-09-07] MEDS: LORazepam 2 MG TAB PO PRN (20:08)
[2023-09-07] MEDS: BACITRACIN OINTMENT 30GM TUBE TOP SCH (21:00)
[2023-09-08] VITALS (11 sets, daily range): BP systolic 132–154; BP diastolic 77–93; TEMP 97–98.4; O2SAT 94–100
[2023-09-08] MEDS ORDERED: BACI50OI TOP ×2 (10:58→11:47)
[2023-09-08] MEDS ORDERED: OXAZ15CA4 PO ×2 (10:58→11:47)
[2023-09-08] MEDS ORDERED: FOLI1TAB11 PO (10:58)
[2023-09-08] MEDS ORDERED: THIA100T7 PO (11:57)
== END 2023-09-08 18:11 ==
LOC: M ED 20:49 → M ED INP 20:50 → ENRESERV 09-07 09:13 → M PCU 09-07 09:54
PROVIDERS: ADMIT Internal Medicine; ATTEND Internal Medicine
DX: T43.592A Poisoning by other antipsychotics and neuroleptics, intentional self-harm, initial encounter (principal); T51.0X2A Toxic effect of ethanol, intentional self-harm, initial encounter; Y92.89 Other specified places as the place of occurrence of the external cause; M62.82 Rhabdomyolysis; E87.0 Hyperosmolality and hypernatremia; F32.A Depression, unspecified; F43.10 Post-traumatic stress disorder, unspecified; F10.229 Alcohol dependence with intoxication, unspecified; F12.90 Cannabis use, unspecified, uncomplicated; R45.4 Irritability and anger; R94.4 Abnormal results of kidney function studies; R94.31 Abnormal electrocardiogram [ECG] [EKG]; Z91.51 Personal history of suicidal behavior; Z62.810 Personal history of physical and sexual abuse in childhood; Z81.8 Family history of other mental and behavioral disorders; S91.302A Unspecified open wound, left foot, initial encounter; W26.1XXA Contact with sword or dagger, initial encounter; Y93.89 Activity, other specified; Y99.8 Other external cause status; Z79.899 Other long term (current) drug therapy

== ENCOUNTER 2023-09-08 13:40 | Inpatient (IN) | payer MEDICAID, OTHER ==
[~2023-09-08] VITALS: Ht 182.9 cm; Wt 65.6 kg
[~2023-09-08 13:40] MED LIST changes: +BACI50OI TOP; +FOLI1TAB11 PO; +OXAZ15CA4 PO; +THIA100T7 PO
[2023-09-08] MEDS ORDERED: ACETAMINOPHEN TAB 650MG DOSE (2X325MG) PO PRN (14:00)
[2023-09-08] MEDS ORDERED: MAALOX 30 ML SUSP *UDC PO PRN (14:00)
[2023-09-08] MEDS ORDERED: MOM 30ML SUSPENSION UDC PO PRN (14:00)
[2023-09-08 18:26] VITALS: BP 156/93; TEMP 98.4; O2SAT 99
[2023-09-08] MEDS: BACITRACIN OINTMENT 30GM TUBE TOP SCH (22:34)
[2023-09-08] MEDS: diphenhydrAMINE 25MG CAP PO PRN (23:26)
[2023-09-09 06:59] VITALS: BP 158/86; TEMP 98; O2SAT 100
[2023-09-09] MEDS: LORazepam 1 MG TAB PO ONE (09:32)
[2023-09-09] MEDS: ESCITALOPRAM OXALATE 10 MG TAB (LEXAPRO) PO SCH (11:44)
[2023-09-09] MEDS ORDERED: LORazepam 2 MG TAB PO PRN (11:55)
[2023-09-09] MEDS: FOLIC ACID 1MG TAB PO SCH (12:35)
[2023-09-09] MEDS: MULTIVITAMINS/MINERALS THERAP 1 TAB PO SCH (12:35)
[2023-09-09] MEDS: THIAMINE 100 MG TAB PO SCH (12:35)
[2023-09-09] MEDS: NICOTINE 21MG/24HR 1 EA TRANSDERMAL TD SCH (12:36)
[2023-09-09] MEDS: OXAZEPAM 15MG CAP PO SCH (14:00)
[2023-09-09 17:06] VITALS: BP 144/87
[2023-09-09 18:22] VITALS: BP 144/84; TEMP 98.3
[2023-09-09] MEDS: RAMELTEON 8 MG TAB (ROZEREM) PO PRN (20:27)
[2023-09-09] MEDS: traZODone 50 MG TAB PO PRN (20:27)
[2023-09-10 06:28] VITALS: BP 145/87; TEMP 97.3; O2SAT 100
[2023-09-10 10:00] VITALS: BP 145/87
[2023-09-10 17:25] VITALS: BP 172/99; TEMP 97.6; O2SAT 100
[2023-09-10 19:45] VITALS: BP 145/90
[2023-09-11] MEDS: hydrOXYzine 50 MG TAB PO PRN (01:25)
[2023-09-11 16:34] VITALS: BP 138/88; TEMP 98.7; O2SAT 100
[2023-09-12 06:33] VITALS: BP 132/84; TEMP 98.2; O2SAT 100
[2023-09-12 16:12] VITALS: BP 138/88; TEMP 98.3; O2SAT 100
[2023-09-13] MEDS: IBUPROFEN 400MG TAB PO PRN (12:05)
[2023-09-13 16:36] VITALS: BP 102/69; TEMP 98.1; O2SAT 98
[2023-09-14 18:24] VITALS: BP 137/81; TEMP 98.4
[2023-09-15 06:23] VITALS: BP 115/76; TEMP 98; O2SAT 99
[2023-09-15] MEDS ORDERED: RAME8TAB2 PO (12:02)
[2023-09-15] MEDS ORDERED: LEXA1TAB PO (12:02)
== END 2023-09-15 13:40 | disposition home or self-care (01) | DRG 754 ==
LOC: M PSY 19:23
PROVIDERS: ADMIT Psychiatry & Neurology Psychiatry; ATTEND Student in an Organized Health Care Education/Training Program
DX: F32.A Depression, unspecified (principal); E87.0 Hyperosmolality and hypernatremia; M62.82 Rhabdomyolysis; S91.302A Unspecified open wound, left foot, initial encounter; F60.89 Other specific personality disorders; F43.10 Post-traumatic stress disorder, unspecified; F10.229 Alcohol dependence with intoxication, unspecified; F12.20 Cannabis dependence, uncomplicated; T43.592A Poisoning by other antipsychotics and neuroleptics, intentional self-harm, initial encounter; Y92.89 Other specified places as the place of occurrence of the external cause; R45.4 Irritability and anger; R94.31 Abnormal electrocardiogram [ECG] [EKG]; W26.1XXA Contact with sword or dagger, initial encounter; Y93.89 Activity, other specified; Y99.8 Other external cause status; F17.210 Nicotine dependence, cigarettes, uncomplicated; Z91.030 Bee allergy status; Z91.51 Personal history of suicidal behavior; Z62.810 Personal history of physical and sexual abuse in childhood; Z79.899 Other long term (current) drug therapy; Z81.8 Family history of other mental and behavioral disorders

== ENCOUNTER 2023-12-22 13:38 | Inpatient (IN) | payer MEDICAID, OTHER, SELFPAY ==
[~2023-12-22] VITALS: Ht 182.9 cm; Wt 66.1 kg
[~2023-12-22 13:38] MED LIST changes: +BUPR-597; -BUPR300T92; +FLUO-365 PO; -FLUO20CA22 PO
[2023-12-22 14:34] LABS: HEMATOCRIT 38.3 % (42.0-52.0); HEMOGLOBIN 13.5 g/dl (13.5-17.5); MEAN CORPUSCULAR HEMOGLOBIN 33.7 pg (27.0-33.0); MEAN CORPUSCULAR HGB CONC 35.2 g/dl (32.0-36.5); MEAN CORPUSCULAR VOLUME 95.5 fl (80.0-96.0); PLATELET COUNT, AUTOMATED 160 10^3/uL (150-450); RED BLOOD COUNT 4.01 10^6/uL (4.30-6.10); WHITE BLOOD COUNT 4.6 10^3/uL (4.0-10.0)
[2023-12-22 14:57] LABS: SALICYLATE LEVEL < 3.0 MG/DL (<30)
[2023-12-22 15:05] LABS: ALBUMIN 4.3 G/DL (3.2-5.2); ALKALINE PHOSPHATASE 79 U/L (46-116); ALT/SGPT 102 U/L (7.0-40); AST/SGOT 146 U/L (<34); BILIRUBIN,DIRECT 0.4 MG/DL (<0.4); BILIRUBIN,TOTAL 1.1 MG/DL (0.3-1.2); BLOOD UREA NITROGEN 10 MG/DL (9-23); CALCIUM LEVEL 8.7 MG/DL (8.5-10.1); CARBON DIOXIDE LEVEL 27 MMOL/L (20-31); CHLORIDE LEVEL 105 MMOL/L (98-107); GLOMERULAR FILTRATION RATE > 60.0 (>60); GLUCOSE, FASTING 99 MG/DL (60-100); POTASSIUM SERUM 3.6 MMOL/L (3.5-5.1); SODIUM LEVEL 141 MMOL/L (136-145); TOTAL PROTEIN 6.9 G/DL (5.7-8.2)
[2023-12-22 15:07] LABS: AMPHETAMINES LEVEL URINE NEGATIVE (NEGATIVE)
[2023-12-22 15:08] LABS: BARBITURATES URINE NEGATIVE (NEGATIVE); BENZODIAZEPINES URINE NEGATIVE (NEGATIVE); COCAINE METABOLITE URINE NEGATIVE (NEGATIVE); METHADONE URINE NEGATIVE (NEGATIVE); OPIATES URINE NEGATIVE (NEGATIVE); PHENCYCLIDINE URINE NEGATIVE (NEGATIVE)
[2023-12-22 15:20] LABS: CANNABINOIDS URINE POSITIVE (NEGATIVE)
[2023-12-22 15:46] LABS: ETHYL ALCOHOL (ETHANOL) 0.347 % (0.000-0.010)
[2023-12-22] MEDS: ONDANSETRON 4MG ORAL DISINTEGRATING TAB PO ONE (20:14)
[2023-12-23] MEDS ORDERED: HOME MED LIST COMPLETE! XX SCH (09:00)
[2023-12-23] MEDS ORDERED: MAALOX 30 ML SUSP *UDC PO PRN (10:30)
[2023-12-23] MEDS ORDERED: IBUPROFEN 400MG TAB PO PRN (10:30)
[2023-12-23] MEDS ORDERED: diphenhydrAMINE 25MG CAP PO PRN (10:30)
[2023-12-23] MEDS ORDERED: MOM 30ML SUSPENSION UDC PO PRN (10:30)
[2023-12-23] MEDS ORDERED: traZODone 50 MG TAB PO PRN (10:30)
[2023-12-23] MEDS: MULTIVITAMINS/MINERALS THERAP 1 TAB PO SCH (11:20)
[2023-12-23] MEDS: LORazepam 2 MG TAB PO PRN (11:21)
[2023-12-23] MEDS: THIAMINE 100 MG TAB PO SCH (11:21)
[2023-12-23] MEDS: FOLIC ACID 1MG TAB PO SCH (11:21)
[2023-12-23] MEDS: OLANZapine ORAL DISINTEGRATING TAB 5MG PO PRN (11:21)
[2023-12-23 13:23] VITALS: BP 163/96; TEMP 98; O2SAT 99
[2023-12-23] MEDS: NICOTINE 21MG/24HR 1 EA TRANSDERMAL TD SCH (14:54)
[2023-12-23 14:59] VITALS: BP 163/96
[2023-12-23] MEDS ORDERED: OXAZEPAM 10MG CAP PO SCH (15:30)
[2023-12-23] MEDS: amLODIPine 5 MG TAB PO ONE (15:59)
[2023-12-23] MEDS: OXAZEPAM 10MG CAP PO SCH (15:59)
[2023-12-24 06:26] VITALS: BP 158/96
[2023-12-24 06:50] VITALS: BP 158/96; TEMP 96.9; O2SAT 97
[2023-12-24 07:48] LABS: HEPATITIS B SURFACE ANTIGEN NEGATIVE (NEGATIVE)
[2023-12-24 08:09] LABS: HEPATITIS B CORE ANTIBODY IGM NEGATIVE (NEGATIVE); HEPATITIS C VIRUS ABY INDEX < 0.02 INDEX (<0.8)
[2023-12-24] MEDS: ESCITALOPRAM OXALATE 10 MG TAB (LEXAPRO) PO SCH (09:24)
[2023-12-24] MEDS: amLODIPine 5 MG TAB PO SCH (09:24)
[2023-12-24] MEDS: ACETAMINOPHEN TAB 650MG DOSE (2X325MG) PO PRN (14:00)
[2023-12-24 14:16] VITALS: BP 155/95; TEMP 98.2; O2SAT 100
[2023-12-24 14:47] VITALS: BP 155/95
[2023-12-24] MEDS: OXAZEPAM 10MG CAP PO SCH (18:16)
[2023-12-24] MEDS: RAMELTEON 8 MG TAB (ROZEREM) PO SCH (21:08)
[2023-12-25 06:23] VITALS: BP 142/90; TEMP 97.2; O2SAT 99
[2023-12-25 09:30] VITALS: BP 131/90
[2023-12-25 15:00] VITALS: BP 130/100; TEMP 98.5; O2SAT 98
[2023-12-25 16:49] VITALS: BP 134/84
[2023-12-25 17:00] VITALS: BP 140/88
[2023-12-26] MEDS: OXAZEPAM 10MG CAP PO SCH (06:09)
[2023-12-26 06:30] VITALS: BP 138/88; TEMP 97.7; O2SAT 97
[2023-12-26 07:37] VITALS: BP 140/85
[2023-12-26 13:37] VITALS: BP 130/90
[2023-12-26 15:37] VITALS: BP 130/90; TEMP 98.1; O2SAT 100
[2023-12-27 06:30] VITALS: BP 147/91; TEMP 97; O2SAT 100
[2023-12-27 16:07] VITALS: BP 137/85; TEMP 98.5; O2SAT 100
[2023-12-28 06:35] VITALS: BP 139/89; TEMP 98; O2SAT 99
[2023-12-28 09:19] VITALS: BP 138/84
[2023-12-28] MEDS: hydrOXYzine 50 MG TAB PO PRN (18:32)
[2023-12-28 18:56] VITALS: BP 133/76; TEMP 98
[2023-12-29 05:51] VITALS: BP 121/69; TEMP 97.5; O2SAT 96
[2023-12-29] MEDS: OXAZEPAM 10MG CAP PO ONE (09:00)
[2023-12-29 09:01] VITALS: BP 144/90
[2023-12-29] MEDS ORDERED: FOLI1TAB11 PO (09:13)
[2023-12-29] MEDS ORDERED: RAME8TAB2 PO (09:13)
[2023-12-29] MEDS ORDERED: AMLO1TAB24 PO (09:13)
[2023-12-29] MEDS ORDERED: HYDR50TA70 PO (09:13)
== END 2023-12-29 11:07 | disposition home or self-care (01) | DRG 754 ==
LOC: M ED 13:38 → M ED INP 12-23 10:30 → M PSY 12-23 13:27
PROVIDERS: ADMIT Student in an Organized Health Care Education/Training Program; ATTEND Student in an Organized Health Care Education/Training Program
DX: F32.A Depression, unspecified (principal); Z91.148 Patient's other noncompliance with medication regimen for other reason; R45.851 Suicidal ideations; F60.89 Other specific personality disorders; F43.10 Post-traumatic stress disorder, unspecified; F10.10 Alcohol abuse, uncomplicated; F41.1 Generalized anxiety disorder; F12.10 Cannabis abuse, uncomplicated; F17.210 Nicotine dependence, cigarettes, uncomplicated; I10 Essential (primary) hypertension; R74.01 Elevation of levels of liver transaminase levels; R94.6 Abnormal results of thyroid function studies; Z91.52 Personal history of nonsuicidal self-harm; Z62.810 Personal history of physical and sexual abuse in childhood; Z62.811 Personal history of psychological abuse in childhood; Z56.0 Unemployment, unspecified; Z81.8 Family history of other mental and behavioral disorders; Z81.3 Family history of other psychoactive substance abuse and dependence; Z91.51 Personal history of suicidal behavior; Z91.030 Bee allergy status; Z63.4 Disappearance and death of family member

== ENCOUNTER 2024-03-15 20:06 | Inpatient (IN) | payer MEDICAID, OTHER ==
[~2024-03-15 20:06] MED LIST changes: +AMLO1TAB24 PO
[2024-03-15 20:49] LABS: HEMOGLOBIN 15.1 g/dl (13.5-17.5); MEAN CORPUSCULAR HEMOGLOBIN 32.9 pg (27.0-33.0); MEAN CORPUSCULAR HGB CONC 35.1 g/dl (32.0-36.5); MEAN CORPUSCULAR VOLUME 93.7 fl (80.0-96.0); PLATELET COUNT, AUTOMATED 227 10^3/uL (150-450); RED BLOOD COUNT 4.59 10^6/uL (4.30-6.10)
[2024-03-15] MEDS: THIAMINE 100 MG TAB PO SCH (21:00)
[2024-03-15 21:13] LABS: AMPHETAMINES LEVEL URINE NEGATIVE (NEGATIVE); BARBITURATES URINE NEGATIVE (NEGATIVE); BENZODIAZEPINES URINE NEGATIVE (NEGATIVE); COCAINE METABOLITE URINE NEGATIVE (NEGATIVE); METHADONE URINE NEGATIVE (NEGATIVE); OPIATES URINE NEGATIVE (NEGATIVE); PHENCYCLIDINE URINE NEGATIVE (NEGATIVE)
[2024-03-15 21:16] LABS: CANNABINOIDS URINE POSITIVE (NEGATIVE); SALICYLATE LEVEL < 3.0 MG/DL (<30)
[2024-03-15 21:17] LABS: ALBUMIN 4.5 G/DL (3.2-5.2); ALKALINE PHOSPHATASE 73 U/L (46-116); ALT/SGPT 34 U/L (7.0-40); AST/SGOT 49 U/L (<34); BILIRUBIN,DIRECT 0.3 MG/DL (<0.4); BILIRUBIN,TOTAL 0.9 MG/DL (0.3-1.2); BLOOD UREA NITROGEN 8 MG/DL (9-23); CALCIUM LEVEL 9.1 MG/DL (8.5-10.1); CARBON DIOXIDE LEVEL 26 MMOL/L (20-31); CHLORIDE LEVEL 110 MMOL/L (98-107); CREATININE FOR GFR 0.96 MG/DL (0.70-1.30); GLOMERULAR FILTRATION RATE > 60.0 (>60); GLUCOSE, FASTING 86 MG/DL (60-100); POTASSIUM SERUM 3.9 MMOL/L (3.5-5.1); SODIUM LEVEL 145 MMOL/L (136-145); TOTAL PROTEIN 7.6 G/DL (5.7-8.2)
[2024-03-15 21:18] LABS: THYROID STIMULATING HORMONE 0.891 uIU/ML (0.55-4.78)
[2024-03-15 21:52] LABS: ETHYL ALCOHOL (ETHANOL) 0.489 % (0.000-0.010)
[2024-03-16] MEDS: FOLIC ACID 1MG TAB PO SCH (10:04)
[2024-03-16] MEDS: MULTIVITAMINS/MINERALS THERAP 1 TAB PO SCH (10:04)
[2024-03-16] MEDS ORDERED: HOME MED LIST COMPLETE! XX SCH (14:15)
[2024-03-16] MEDS: LORazepam 2 MG TAB PO PRN (18:30)
[2024-03-16] MEDS: ONDANSETRON 4MG ORAL DISINTEGRATING TAB PO ONE (18:33)
[2024-03-16] MEDS ORDERED: MOM 30ML SUSPENSION UDC PO PRN (19:30)
[2024-03-16] MEDS ORDERED: MAALOX 30 ML SUSP *UDC PO PRN (19:30)
[2024-03-16] MEDS ORDERED: ACETAMINOPHEN TAB 650MG DOSE (2X325MG) PO PRN (19:30)
[2024-03-16] MEDS: THIAMINE 100 MG TAB PO SCH (21:00)
[2024-03-16 21:16] VITALS: BP 148/69; TEMP 98.4; O2SAT 100
[2024-03-16 23:15] VITALS: BP 133/88
[2024-03-16 23:16] VITALS: BP 133/88; TEMP 98; O2SAT 99
[2024-03-17] VITALS (7 sets, daily range): BP systolic 133–167; BP diastolic 77–96; TEMP 98.7–98.8; O2SAT 94–99
[2024-03-17] MEDS: MULTIVITAMINS/MINERALS THERAP 1 TAB PO SCH (08:55)
[2024-03-17] MEDS: FOLIC ACID 1MG TAB PO SCH (08:55)
[2024-03-17] MEDS: LORazepam 2 MG TAB PO PRN (09:32)
[2024-03-17] MEDS: LORazepam 1 MG TAB PO ONE (12:36)
[2024-03-17] MEDS ORDERED: NALTREXONE 50 MG TAB PO SCH (15:40)
[2024-03-17] MEDS: chlordiazePOXIDE 25 MG CAP PO SCH (16:44)
[2024-03-17] MEDS: NICOTINE 21MG/24HR 1 EA TRANSDERMAL TD SCH (16:47)
[2024-03-17] MEDS: traZODone 50 MG TAB PO PRN (20:16)
[2024-03-18] MEDS: NALTREXONE 50 MG TAB PO SCH (08:27)
[2024-03-18] MEDS: diphenhydrAMINE 25MG CAP PO PRN (12:51)
[2024-03-18 14:17] VITALS: BP 136/85; TEMP 98.4; O2SAT 100
[2024-03-18 14:19] VITALS: BP 136/85
[2024-03-18 22:03] VITALS: BP 126/67
[2024-03-19 06:00] VITALS: BP 118/72
[2024-03-19 07:04] VITALS: BP 132/77; TEMP 98.1; O2SAT 98
[2024-03-19 15:03] VITALS: BP 136/84; TEMP 97.6; O2SAT 99
[2024-03-19 17:00] VITALS: BP 136/84
[2024-03-19] MEDS: RAMELTEON 8 MG TAB (ROZEREM) PO SCH (20:19)
[2024-03-19 21:40] VITALS: BP 126/67
[2024-03-20 06:45] VITALS: BP 115/61; TEMP 97; O2SAT 100
[2024-03-20 07:33] VITALS: BP 115/61
[2024-03-20] MEDS: ESCITALOPRAM OXALATE 10 MG TAB (LEXAPRO) PO SCH (09:18)
[2024-03-20 15:28] VITALS: BP 142/87; TEMP 97.3; O2SAT 99
[2024-03-20 16:00] VITALS: BP 142/87
[2024-03-21 15:14] VITALS: BP 137/82; TEMP 98; O2SAT 99
[2024-03-22 06:34] VITALS: BP 119/70; TEMP 97.3; O2SAT 100
[2024-03-22] MEDS: IBUPROFEN 400MG TAB PO PRN (14:59)
[2024-03-22 16:10] VITALS: BP 138/65; TEMP 97.6; O2SAT 98
[2024-03-23 06:15] VITALS: BP 113/56; TEMP 97.6; O2SAT 98
[2024-03-23] MEDS: ESCITALOPRAM OXALATE 10 MG TAB (LEXAPRO) PO ONE (09:18)
[2024-03-23 15:29] VITALS: BP 119/75; TEMP 97.4; O2SAT 97
[2024-03-24 06:25] VITALS: BP 126/72; TEMP 97.9; O2SAT 99
[2024-03-24] MEDS: ESCITALOPRAM OXALATE 10 MG TAB (LEXAPRO) PO SCH (08:06)
[2024-03-24] MEDS ORDERED: LEXA1TAB PO (08:21)
[2024-03-24] MEDS ORDERED: NALT50TA4 PO (08:21)
== END 2024-03-24 10:24 | disposition home or self-care (01) | DRG 751 ==
LOC: M ED 20:06 → M ED INP 03-16 19:28 → M PSY 03-16 21:01
PROVIDERS: ADMIT Psychiatry & Neurology Psychiatry; ATTEND Psychiatry & Neurology Psychiatry
DX: F33.9 Major depressive disorder, recurrent, unspecified (principal); R45.851 Suicidal ideations; F10.229 Alcohol dependence with intoxication, unspecified; F60.89 Other specific personality disorders; F17.200 Nicotine dependence, unspecified, uncomplicated; Z62.819 Personal history of unspecified abuse in childhood; Z91.51 Personal history of suicidal behavior; Z56.0 Unemployment, unspecified; Z91.030 Bee allergy status; Z91.52 Personal history of nonsuicidal self-harm

== ENCOUNTER 2024-07-10 22:26 | Inpatient (IN) | payer MEDICAID, OTHER ==
[~2024-07-10] VITALS: Ht 182.9 cm; Wt 68.6 kg
[~2024-07-10 22:26] MED LIST changes: +GABA-1172 PO; +MIRT-10 PO; +MULT400T10 PO; +NALT50TA4 PO; +NICO1DIS12 PO; +TRAZ-257 PO
[2024-07-10 23:16] LABS: HEMATOCRIT 46.7 % (42.0-52.0); HEMOGLOBIN 16.1 g/dl (13.5-17.5); MEAN CORPUSCULAR HEMOGLOBIN 31.9 pg (27.0-33.0); MEAN CORPUSCULAR HGB CONC 34.5 g/dl (32.0-36.5); MEAN CORPUSCULAR VOLUME 92.5 fl (80.0-96.0); PLATELET COUNT, AUTOMATED 282 10^3/uL (150-450); RED BLOOD COUNT 5.05 10^6/uL (4.30-6.10); WHITE BLOOD COUNT 8.2 10^3/uL (4.0-10.0)
[2024-07-10 23:42] LABS: SALICYLATE LEVEL < 3.0 MG/DL (<30)
[2024-07-11 00:03] LABS: ALBUMIN 4.4 G/DL (3.2-5.2); ALKALINE PHOSPHATASE 63 U/L (40-129); ALT/SGPT 32 U/L (7.0-40); AST/SGOT 28 U/L (<34); BILIRUBIN,DIRECT 0.3 MG/DL (<0.4); BILIRUBIN,TOTAL 0.8 MG/DL (0.3-1.2); BLOOD UREA NITROGEN 13 MG/DL (9-23); CALCIUM LEVEL 8.8 MG/DL (8.5-10.1); CARBON DIOXIDE LEVEL 29 MMOL/L (20-31); CHLORIDE LEVEL 105 MMOL/L (98-107); GLOMERULAR FILTRATION RATE > 60.0 (>60); GLUCOSE, FASTING 93 MG/DL (60-100); POTASSIUM SERUM 3.9 MMOL/L (3.5-5.1); SODIUM LEVEL 144 MMOL/L (136-145); THYROID STIMULATING HORMONE 0.953 uIU/ML (0.55-4.78); TOTAL PROTEIN 7.5 G/DL (5.7-8.2)
[2024-07-11 00:24] LABS: ETHYL ALCOHOL (ETHANOL) 0.311 % (0.000-0.010)
[2024-07-11 00:40] LABS: AMPHETAMINES LEVEL URINE NEGATIVE (NEGATIVE); BARBITURATES URINE NEGATIVE (NEGATIVE)
[2024-07-11 00:41] LABS: BENZODIAZEPINES URINE NEGATIVE (NEGATIVE); COCAINE METABOLITE URINE NEGATIVE (NEGATIVE); METHADONE URINE NEGATIVE (NEGATIVE); OPIATES URINE NEGATIVE (NEGATIVE); PHENCYCLIDINE URINE NEGATIVE (NEGATIVE)
[2024-07-11 00:43] LABS: CANNABINOIDS URINE POSITIVE (NEGATIVE)
[2024-07-11] MEDS ORDERED: HOME MED LIST COMPLETE! XX SCH (13:10)
[2024-07-11 15:54] VITALS: BP 137/89; TEMP 98.1; O2SAT 96
[2024-07-11] MEDS: THIAMINE 100 MG TAB PO SCH (16:16)
[2024-07-11] MEDS: MULTIVITAMINS/MINERALS THERAP 1 TAB PO SCH (16:16)
[2024-07-11] MEDS: FOLIC ACID 1MG TAB PO SCH (16:17)
[2024-07-11] MEDS: buPROPion **XL** TABLET 150MG (WELLBUTRIN XL) PO SCH (16:17)
[2024-07-11 16:55] VITALS: BP 137/89
[2024-07-11] MEDS: NICOTINE 21MG/24HR 1 EA TRANSDERMAL TD SCH (17:53)
[2024-07-11] MEDS: hydrOXYzine 50 MG TAB PO PRN (18:45)
[2024-07-11 20:45] VITALS: BP 138/99
[2024-07-11] MEDS: LORazepam 2 MG TAB PO PRN (20:48)
[2024-07-11] MEDS: RAMELTEON 8 MG TAB (ROZEREM) PO SCH (20:48)
[2024-07-11] MEDS: NALTREXONE 50 MG TAB PO SCH (20:49)
[2024-07-11] MEDS: MIRTAZAPINE 7.5MG PER 1/2 TABLET PO SCH (20:49)
[2024-07-12] MEDS: FLUZONE VACCINE TRIVALENT PF(2024-25) 0.5ML SYRINGE IM.IMMUN ONE (09:09)
[2024-07-12 15:00] VITALS: BP 140/78
[2024-07-12 15:08] VITALS: BP 140/78; TEMP 97.8; O2SAT 100
[2024-07-12] MEDS: hydrOXYzine 50 MG TAB PO PRN (15:52)
[2024-07-13] MEDS: ONDANSETRON 4MG ORAL DISINTEGRATING TAB PO PRN (12:53)
[2024-07-13 15:38] VITALS: BP 125/58; TEMP 97.8; O2SAT 99
[2024-07-14 16:51] VITALS: BP 140/72; TEMP 97.8; O2SAT 98
[2024-07-15 15:51] VITALS: BP 138/90; TEMP 98.2; O2SAT 97
[2024-07-16 16:01] VITALS: BP 126/64; TEMP 97.8; O2SAT 100
[2024-07-17 17:39] VITALS: BP 130/88; TEMP 97.3; O2SAT 95
[2024-07-18 17:45] VITALS: BP 131/87; TEMP 97.8; O2SAT 100
[2024-07-19 15:55] VITALS: BP 132/87; TEMP 98; O2SAT 96
[2024-07-20 15:33] VITALS: BP 136/80; TEMP 98; O2SAT 97
[2024-07-21] MEDS: IBUPROFEN 400MG TAB PO PRN (09:47)
[2024-07-21 14:50] VITALS: BP 127/73; TEMP 97.9; O2SAT 98
[2024-07-23 15:16] VITALS: BP 133/90; TEMP 97.9; O2SAT 100
[2024-07-24 14:50] VITALS: BP 152/98; TEMP 97.9; O2SAT 96
[2024-07-24 18:00] VITALS: BP 138/88
[2024-07-25 17:01] VITALS: BP 141/81; TEMP 97.9; O2SAT 98
[2024-07-26] MEDS ORDERED: NALT50TA4 PO (11:53)
[2024-07-26] MEDS ORDERED: HYDR50TA70 PO (11:53)
[2024-07-26] MEDS ORDERED: BUPR150T12 PO (11:53)
[2024-07-26] MEDS ORDERED: RAME8TAB2 PO (11:53)
== END 2024-07-26 12:36 | disposition home or self-care (01) | DRG 775 ==
LOC: M ED 22:26 → M ED INP 07-11 14:14 → M PSY 07-11 15:50
PROVIDERS: ADMIT Psychiatry & Neurology Psychiatry; ATTEND Psychiatry & Neurology Psychiatry
DX: F10.24 Alcohol dependence with alcohol-induced mood disorder (principal); R45.851 Suicidal ideations; R45.850 Homicidal ideations; F33.1 Major depressive disorder, recurrent, moderate; F10.229 Alcohol dependence with intoxication, unspecified; F17.200 Nicotine dependence, unspecified, uncomplicated; F60.9 Personality disorder, unspecified; F41.1 Generalized anxiety disorder; Z81.3 Family history of other psychoactive substance abuse and dependence; Z81.8 Family history of other mental and behavioral disorders; Z62.810 Personal history of physical and sexual abuse in childhood; Z79.899 Other long term (current) drug therapy; Z91.51 Personal history of suicidal behavior; Z56.0 Unemployment, unspecified; Z91.52 Personal history of nonsuicidal self-harm

== ENCOUNTER 2024-09-07 16:32 | Inpatient (IN) | payer MEDICAID, OTHER ==
[~2024-09-07] VITALS: Ht 182.9 cm; Wt 70.5 kg
[2024-09-07 17:22] LABS: HEMATOCRIT 44.1 % (42.0-52.0); HEMOGLOBIN 15.6 g/dl (13.5-17.5); MEAN CORPUSCULAR HEMOGLOBIN 31.8 pg (27.0-33.0); MEAN CORPUSCULAR HGB CONC 35.4 g/dl (32.0-36.5); PLATELET COUNT, AUTOMATED 249 10^3/uL (150-450); WHITE BLOOD COUNT 11.1 10^3/uL (4.0-10.0)
[2024-09-07 17:40] LABS: AMPHETAMINES LEVEL URINE NEGATIVE (NEGATIVE); BARBITURATES URINE NEGATIVE (NEGATIVE); BENZODIAZEPINES URINE NEGATIVE (NEGATIVE); COCAINE METABOLITE URINE NEGATIVE (NEGATIVE); METHADONE URINE NEGATIVE (NEGATIVE); OPIATES URINE NEGATIVE (NEGATIVE); PHENCYCLIDINE URINE NEGATIVE (NEGATIVE)
[2024-09-07] MEDS ORDERED: LORazepam 2 MG TAB PO PRN (17:40)
[2024-09-07 17:41] LABS: CANNABINOIDS URINE POSITIVE (NEGATIVE)
[2024-09-07 17:42] LABS: ETHYL ALCOHOL (ETHANOL) 0.296 % (0.000-0.010)
[2024-09-07 17:44] LABS: ALBUMIN 4.5 G/DL (3.2-5.2); ALKALINE PHOSPHATASE 73 U/L (40-129); ALT/SGPT 23 U/L (7.0-40); AST/SGOT 44 U/L (<34); BILIRUBIN,DIRECT 0.4 MG/DL (<0.4); BILIRUBIN,TOTAL 1.1 MG/DL (0.3-1.2); BLOOD UREA NITROGEN 18 MG/DL (9-23); CALCIUM LEVEL 8.7 MG/DL (8.5-10.1); CARBON DIOXIDE LEVEL 25 MMOL/L (20-31); CHLORIDE LEVEL 108 MMOL/L (98-107); CREATININE FOR GFR 1.19 MG/DL (0.70-1.30); GLOMERULAR FILTRATION RATE > 60.0 (>60); GLUCOSE, FASTING 102 MG/DL (60-100); POTASSIUM SERUM 3.7 MMOL/L (3.5-5.1); SALICYLATE LEVEL < 3.0 MG/DL (<30); SODIUM LEVEL 144 MMOL/L (136-145); TOTAL PROTEIN 7.7 G/DL (5.7-8.2)
[2024-09-07 17:46] LABS: THYROID STIMULATING HORMONE 0.684 uIU/ML (0.55-4.78)
[2024-09-07] MEDS: THIAMINE 100 MG TAB PO SCH (18:29)
[2024-09-08] MEDS ORDERED: diphenhydrAMINE 25MG CAP PO PRN (05:15)
[2024-09-08] MEDS ORDERED: traZODone 50 MG TAB PO PRN (05:15)
[2024-09-08] MEDS ORDERED: MAALOX 30 ML SUSP *UDC PO PRN (05:15)
[2024-09-08] MEDS ORDERED: MOM 30ML SUSPENSION UDC PO PRN (05:15)
[2024-09-08] MEDS ORDERED: ACETAMINOPHEN 325 MG TAB PO PRN (05:15)
[2024-09-08 05:43] VITALS: BP 134/89; TEMP 97.9; O2SAT 100
[2024-09-08] MEDS ORDERED: FOLIC ACID 1MG TAB PO SCH (09:00)
[2024-09-08] MEDS ORDERED: MULTIVITAMINS/MINERALS THERAP 1 TAB PO SCH (09:00)
[2024-09-08] MEDS ORDERED: LORazepam 2 MG TAB PO PRN (09:10)
[2024-09-08 09:37] VITALS: BP 148/66
[2024-09-08] MEDS: MULTIVITAMINS/MINERALS THERAP 1 TAB PO SCH (10:50)
[2024-09-08] MEDS: NICOTINE 21MG/24HR 1 EA TRANSDERMAL TD SCH (10:51)
[2024-09-08] MEDS: THIAMINE 100 MG TAB PO SCH (10:51)
[2024-09-08] MEDS: FOLIC ACID 1MG TAB PO SCH (10:51)
[2024-09-08] MEDS: BACITRACIN OINTMENT 30GM TUBE TOP SCH (11:25)
[2024-09-08] MEDS ORDERED: RAME8TAB2 PO (11:39)
[2024-09-08] MEDS ORDERED: MIRT1TAB PO (11:39)
[2024-09-08] MEDS ORDERED: HOME MED LIST COMPLETE! XX SCH (11:40)
[2024-09-08] MEDS: buPROPion **XL** TABLET 150MG (WELLBUTRIN XL) PO SCH (12:30)
[2024-09-08] MEDS: hydrOXYzine 50 MG TAB PO PRN (12:59)
[2024-09-08 14:10] VITALS: BP 138/92
[2024-09-08 14:43] VITALS: BP 138/92; TEMP 97.1; O2SAT 97
[2024-09-08] MEDS: MIRTAZAPINE 15 MG TAB PO SCH (20:04)
[2024-09-08] MEDS: RAMELTEON 8 MG TAB (ROZEREM) PO SCH (20:04)
[2024-09-08] MEDS: NALTREXONE 50 MG TAB PO SCH (20:04)
[2024-09-09] MEDS: IBUPROFEN 400MG TAB PO PRN (09:42)
[2024-09-09 14:27] VITALS: BP 136/93
[2024-09-09 15:12] VITALS: BP 136/93; TEMP 97.9; O2SAT 100
[2024-09-10 15:55] VITALS: BP 140/96; TEMP 97.8; O2SAT 98
[2024-09-11 14:33] VITALS: BP 128/83; TEMP 98.9; O2SAT 99
[2024-09-12 15:33] VITALS: BP 135/82; TEMP 97.3; O2SAT 99
[2024-09-13] MEDS ORDERED: NALT50TA4 PO (00:16)
[2024-09-13] MEDS ORDERED: HYDR50TA70 PO (00:16)
[2024-09-13] MEDS ORDERED: MIRT-10 PO (00:16)
[2024-09-13] MEDS ORDERED: BUPR150T12 PO (00:16)
== END 2024-09-13 10:53 | disposition home or self-care (01) | DRG 756 ==
LOC: M ED 16:32 → M ED INP 09-08 05:12 → M PSY 09-08 05:38
PROVIDERS: ADMIT Psychiatry & Neurology Neurology; ATTEND Internal Medicine
DX: F41.1 Generalized anxiety disorder (principal); F33.1 Major depressive disorder, recurrent, moderate; R45.851 Suicidal ideations; F10.229 Alcohol dependence with intoxication, unspecified; F60.9 Personality disorder, unspecified; F10.24 Alcohol dependence with alcohol-induced mood disorder; F17.200 Nicotine dependence, unspecified, uncomplicated; Z56.0 Unemployment, unspecified; Z62.810 Personal history of physical and sexual abuse in childhood; Z62.811 Personal history of psychological abuse in childhood; Z81.8 Family history of other mental and behavioral disorders; Z79.899 Other long term (current) drug therapy; Z91.030 Bee allergy status; Z91.51 Personal history of suicidal behavior; Z91.52 Personal history of nonsuicidal self-harm

== ENCOUNTER 2025-01-18 18:53 | Inpatient (IN) | payer OTHER ==
[~2025-01-18] VITALS: Ht 182.9 cm; Wt 20.1 kg
[~2025-01-18 18:53] MED LIST changes: -BUPR-597; +BUPR-766; +HYDR-3364 PO; -HYDR-4570 PO; +LAMO-18; -LAMO25TA4; +MIRT1TAB PO
[2025-01-18] MEDS ORDERED: HOME MED LIST COMPLETE! XX SCH (19:30)
[2025-01-18 20:00] LABS: PLATELET COUNT, AUTOMATED 167 10^3/uL (150-450)
[2025-01-18 21:00] LABS: ALT/SGPT 73 U/L (7.0-40); AST/SGOT 96 U/L (<34); CALCIUM LEVEL 9.2 MG/DL (8.5-10.1); CARBON DIOXIDE LEVEL 26.5 MMOL/L (20-31); CHLORIDE LEVEL 103 MMOL/L (98-107); CREATININE FOR GFR 0.97 MG/DL (0.70-1.30); GLOMERULAR FILTRATION RATE > 90.0 (>60); POTASSIUM SERUM 3.3 MMOL/L (3.5-5.1); SODIUM LEVEL 145 MMOL/L (136-145)
[2025-01-18 21:01] LABS: SALICYLATE LEVEL < 3.0 MG/DL (<30)
[2025-01-18 21:07] LABS: ETHYL ALCOHOL (ETHANOL) 0.295 % (0.000-0.010)
[2025-01-18 21:09] LABS: AMPHETAMINES LEVEL URINE POSITIVE (NEGATIVE); BARBITURATES URINE NEGATIVE (NEGATIVE); BENZODIAZEPINES URINE NEGATIVE (NEGATIVE); COCAINE METABOLITE URINE NEGATIVE (NEGATIVE); METHADONE URINE NEGATIVE (NEGATIVE); OPIATES URINE NEGATIVE (NEGATIVE)
[2025-01-18 21:11] LABS: CANNABINOIDS URINE POSITIVE (NEGATIVE)
[2025-01-18] MEDS: ERYTHROMYCIN OPHTH OINT OD SCH (22:25)
[2025-01-18] MEDS: THIAMINE 100 MG TAB PO SCH (22:25)
[2025-01-18 23:02] LABS: PHENCYCLIDINE URINE NEGATIVE (NEGATIVE)
[2025-01-19] MEDS: MULTIVITAMINS/MINERALS THERAP 1 TAB PO SCH (08:08)
[2025-01-19] MEDS: FOLIC ACID 1 MG TAB PO SCH (08:08)
[2025-01-19] MEDS ORDERED: HALOPERIDOL 5 MG TAB PO PRN (12:50)
[2025-01-19] MEDS ORDERED: IBUPROFEN 400 MG TAB PO PRN (12:50)
[2025-01-19] MEDS ORDERED: LORazepam 1 MG TAB PO PRN (12:50)
[2025-01-19] MEDS ORDERED: MAALOX 30 ML SUSP *UDC PO PRN (12:50)
[2025-01-19] MEDS ORDERED: OLANZapine 5 MG TAB PO PRN (12:50)
[2025-01-19] MEDS ORDERED: traZODone 50 MG TAB PO PRN (12:50)
[2025-01-19] MEDS ORDERED: MOM 30 ML SUSPENSION UDC PO PRN (12:50)
[2025-01-19] MEDS ORDERED: ACETAMINOPHEN 325 MG TAB PO PRN (12:50)
[2025-01-19] MEDS: NICOTINE 14 MG/24 HR TRANSDERMAL TD SCH (13:08)
[2025-01-19 14:47] VITALS: BP 137/94
[2025-01-19] MEDS: ERYTHROMYCIN OPHTH OINT OD SCH (18:37)
[2025-01-19] MEDS: THIAMINE 100 MG TAB PO SCH (21:13)
[2025-01-19 22:02] VITALS: BP 138/87
[2025-01-20 06:34] VITALS: BP 136/92; TEMP 97.6; O2SAT 99
[2025-01-20 06:38] VITALS: BP 136/92
[2025-01-20] MEDS: MULTIVITAMINS/MINERALS THERAP 1 TAB PO SCH (08:15)
[2025-01-20] MEDS: FOLIC ACID 1 MG TAB PO SCH (08:15)
[2025-01-20] MEDS: buPROPion **XL** 150 MG TABLET PO SCH (08:52)
[2025-01-20] MEDS: NALTREXONE 50 MG TAB PO SCH (08:52)
[2025-01-20 12:18] VITALS: BP 131/99
[2025-01-20 15:00] VITALS: BP 130/88
[2025-01-20] MEDS: MIRTAZAPINE 15 MG TAB PO SCH (20:31)
[2025-01-20] MEDS: RAMELTEON 8 MG TAB PO SCH (20:32)
[2025-01-20 22:00] VITALS: BP 133/94
[2025-01-21 06:48] VITALS: BP 128/87; TEMP 97.1; O2SAT 98
[2025-01-21 14:45] VITALS: BP 137/96; TEMP 97.6; O2SAT 99
[2025-01-22 15:15] VITALS: BP 133/66; TEMP 97.7; O2SAT 99
[2025-01-22] MEDS: NICOTINE 21 MG/24 HR 1 EA TRANSDERMAL TD SCH (15:22)
[2025-01-23 15:27] VITALS: BP 138/84; TEMP 98.3; O2SAT 97
[2025-01-24 17:13] VITALS: BP 151/85; TEMP 98.2; O2SAT 100
[2025-01-25] MEDS ORDERED: BUPR150T12 PO (09:18)
[2025-01-25] MEDS ORDERED: RAME8TAB2 PO (09:18)
[2025-01-25] MEDS ORDERED: NALT50TA4 PO (09:18)
[2025-01-25] MEDS ORDERED: MIRT-10 PO (09:18)
== END 2025-01-25 11:00 | DRG 754 ==
LOC: M ED 18:53 → M ED INP 01-19 12:50 → M PSY 01-19 13:48
PROVIDERS: ADMIT Internal Medicine; ATTEND Psychiatry & Neurology Psychiatry
DX: F32.A Depression, unspecified (principal); Z91.148 Patient's other noncompliance with medication regimen for other reason; R45.851 Suicidal ideations; F10.129 Alcohol abuse with intoxication, unspecified; F15.120 Other stimulant abuse with intoxication, uncomplicated; F43.10 Post-traumatic stress disorder, unspecified; F41.1 Generalized anxiety disorder; G47.00 Insomnia, unspecified; F60.3 Borderline personality disorder; F10.14 Alcohol abuse with alcohol-induced mood disorder; F15.14 Other stimulant abuse with stimulant-induced mood disorder; Z59.00 Homelessness unspecified; Z56.0 Unemployment, unspecified; Z91.030 Bee allergy status; Z62.810 Personal history of physical and sexual abuse in childhood; Z81.8 Family history of other mental and behavioral disorders